=== PATIENT | female | born 1945 | race Caucasian/White ===

== ENCOUNTER 2018-09-06 00:47 | Outpatient (CLI) | payer OTHER, SELFPAY ==
--- NOTE | 2018-09-06 16:14 | DI.DEXA_ITS ---
SYMPTOM/DIAGNOSIS: SCREENING FOR OSTEOPOROSIS, Z78.0, ASYMPTOMATIC POSTMENOPAUSAL DEXA SCAN: Routine examination. No priors. Evaluation of the spine shows no compression deformities. Evaluation of the left hip shows a total T score of -1.3 and a Z score of 0.4, this is consistent with osteopenia and an increased fracture risk. Evaluation of the lumbar spine shows a total T score of -1.3 and a Z score of 0.9. This is consistent with osteopenia and an increased fracture risk. No evidence of osteoporosis is seen. IMPRESSION: Osteopenia in the left hip and lumbar spine.
== END 2018-09-06 01:07 ==
PROVIDERS: PCP Family Medicine; Visit Provider Family Medicine
DX: M85.88 Other specified disorders of bone density and structure, other site (principal); Z78.0 Asymptomatic menopausal state; Z13.820 Encounter for screening for osteoporosis; M85.852 Other specified disorders of bone density and structure, left thigh
CPT/HCPCS: 77080

== ENCOUNTER 2019-02-22 01:15 | Outpatient (CLI) | payer OTHER, SELFPAY ==
--- NOTE | 2019-02-22 16:17 | DI.MAMMO_ITS ---
SYMPTOM/DIAGNOSIS: SCREENING, Z12.39 MAMMOGRAMS; Mammograms were interpreted according to the usual protocol including computer analysis with CAD system, tomosynthesis and C view imaging. The breast tissue is of moderate radiodensity. When compared with previous images, there is a question regarding interval development of a very small area of nodularity in the central portion of the left breast. This finding noted only on the craniocaudad projection. There are no suspicious calcifications in either breast. SUMMARY: Further assessment with a craniocaudad compression spot film and if appropriate, ultrasound is recommended. Breast density, Category B. MQSA ASSESSMENT OF FINDINGS: Incomplete: Needs additional imaging evaluation. Category 0. Patient will receive a letter notifying them of these results. BI-RADS category B. There are scattered areas of fibroglandular density.
== END 2019-02-22 01:35 ==
PROVIDERS: PCP Family Medicine; Visit Provider Family Medicine
DX: Z12.31 Encounter for screening mammogram for malignant neoplasm of breast (principal); R92.8 Other abnormal and inconclusive findings on diagnostic imaging of breast
CPT/HCPCS: 77063; 77067

== ENCOUNTER 2019-03-09 00:22 | Outpatient (CLI) | payer OTHER, SELFPAY ==
--- NOTE | 2019-03-09 15:24 | DI.COMBO_ITS ---
SYMPTOMS/DIAGNOSIS: SMALL NODULE, CENTRAL BREAST ADDITIONAL MAMMOGRAPHIC VIEWS, LEFT BREAST, AND LEFT BREAST ULTRASOUND: Additional mammographic views of the left breast and left breast ultrasound are interpreted in conjunction. These examinations were obtained to evaluate a questionable area of asymmetric density seen on CC view of the left breast on a recent mammogram. Additional mammographic views fail to show a discrete mass. Breast ultrasound shows no evidence of a mass or cyst. CONCLUSION: No specific evidence of malignancy at this time. Follow-up unilateral left breast mammogram recommended in six months. Category 3, breast density category B. MQSA ASSESSMENT OF FINDINGS: Probably benign. Six month follow-up recommended. Category 3. Patient will receive a letter notifying them of these results. BI-RADS category B. There are scattered areas of fibroglandular density.
== END 2019-03-09 00:42 ==
PROVIDERS: PCP Family Medicine; Visit Provider Family Medicine
DX: Z12.31 Encounter for screening mammogram for malignant neoplasm of breast (principal); R92.8 Other abnormal and inconclusive findings on diagnostic imaging of breast; N64.59 Other signs and symptoms in breast
CPT/HCPCS: 76642; 77063; 77067

== ENCOUNTER 2019-09-20 00:25 | Outpatient (CLI) | payer OTHER, SELFPAY ==
--- NOTE | 2019-09-20 09:18 | DI.MAMMO_ITS ---
EXAM: MG MAMMO DIAGNOSTIC UNI CLINICAL HISTORY: LT BREAST ABNORMAL MAMMO, R92.8., 6 month follow up TECHNIQUE: Mammograms were interpreted according to the usual protocol including computer analysis w [employer] CAD system, tomosynthesis and C-view imaging. FINDINGS: Craniocaudad and medial lateral projections of the left breast were obtained. The breast tissue is o f moderate radiodensity. A small ovoid density projected over the midline of the breast noted on the CC projection appears unchanged and examination of the patient's skin reveals small moles. There joshi s been no definite interval change in this finding. There are no suspicious calcifications. IMPRESSION: No evidence of malignancy, category 2, yearly screening mammography is recommended. Breast density, c ategory B. BI-RADS Cat 2 - Benign Findings. Breast Density - Category B - Scattered areas of fibroglandular density.
== END 2019-09-20 00:45 ==
PROVIDERS: PCP Family Medicine; Visit Provider Family Medicine
DX: Z12.31 Encounter for screening mammogram for malignant neoplasm of breast (principal); R92.8 Other abnormal and inconclusive findings on diagnostic imaging of breast; N64.59 Other signs and symptoms in breast
CPT/HCPCS: 77061; 77065; G0279

== ENCOUNTER 2020-12-05 01:07 | Outpatient (CLI) | payer OTHER, SELFPAY ==
--- NOTE | 2020-12-05 | DI.MAMMO_ITS ---
EXAM: MG MAMMO SCREENING CLINICAL HISTORY: SCREENING,Z12.31. TECHNIQUE: Bilateral full field digital CC and MLO mammographic images were obtained with 3D tomosyn thesis and utilizing computer aided detection (CAD). COMPARISON: Prior mammograms dating back to 2011, the most recent being January 2019 and August 2019. FINDINGS: In the left breast there is a noncalcified well-defined 5 by 3.5 millimeter nodule located approximat ashley 7 centimetres in from the nipple, slightly increased in size from previous. Ultrasound recommend ed. In the right breast there is similar size size 5 x 3 millimeter nodule located 9 centimetres from nip ple. Spot compression view and ultrasound recommended. No malignant-appearing microcalcification gr oups in either breast. There is no significant architectural distortion nor skin thickening-retracti on. IMPRESSION: Bilateral nodules as described above, 1 in each breast. Bilateral breast ultrasound is recommended. Also recommend spot compression MLO view of the right breast finding. BI-RADS Category 0 - Assessment Incomplete: Need additional imaging evaluation Breast Density - Category B - Scattered areas of fibroglandular density Breast density Category C or D implies that the patient has dense breast tissue. Dense breast tissue can make it harder to find cancer on a mammogram. Dense breast tissue is also associated with an incr eased risk of breast cancer. This information about the result of the mammogram report was provided to the patient to raise their awareness. Use this report when you speak with the patient about their risks for breast cancer, which includes their family history. At that time, you may recommend additional screening tests (Ultrasoun d or MRI) as these tests may add significant information. A negative radiographic report should not delay biopsy if a dominant or clinically suspicious mass is present. Up to ten percent of cancers are not identified on mammography. A negative report may reinforce clinical impression. Adenosis and dense breasts may obscure an underlying neoplasm. False positive reports average 6 to 10%. Patient will receive a letter notifying them of these results.
== END 2020-12-05 01:27 ==
PROVIDERS: PCP Family Medicine; Visit Provider Family Medicine
DX: Z12.31 Encounter for screening mammogram for malignant neoplasm of breast (principal); R92.8 Other abnormal and inconclusive findings on diagnostic imaging of breast
CPT/HCPCS: 77063; 77067

== ENCOUNTER 2020-12-10 01:22 | Outpatient (CLI) | payer OTHER, SELFPAY ==
--- NOTE | 2020-12-10 | DI.MAMMO_ITS ---
EXAM: MG MAMMO SCREEN CALL BACK UNI CLINICAL HISTORY: F/U MAMMO, LT BREAST NODULE, RT BREAST NODULE. TECHNIQUE: Craniocaudal and mediolateral oblique spot compression digital Mammography views of the right breast followed by Tomosynthesis and bilateral breast ultrasound. COMPARISON: 2011 through 05 December 2020 FINDINGS: Mammography/Tomosynthesis: Right breast: Masses/Architectural Distortion: None seen. Microcalcifictions: No suspicious pleomorphic-type are seen. Skin Thickening/Nipple Retraction: None. Right breast US: Echotexture: Normal appearance of the glandular tissue. Shadowing: No suspicious foci. Cyst: None. Solid lesions: None seen. Ductal dilation: None. Left breast ultrasound: 3 millimeter cyst the 1 o'clock position 4 cm from the nipple. 7 x 2 x 7 mil limeter cyst in the 10 o'clock position 5 cm from the nipple. IMPRESSION: 1. No evidence of malignancy is noted. 2. Unless there is more urgent need, follow-up screening mammography is recommended, as per [place] guidelines. 3. The findings were discussed with the patient on the date of the examination. BI-RADS Category 2 - Benign Findings Breast Density - Category B - Scattered areas of fibroglandular density A negative radiographic report should not delay biopsy if a dominant or clinically suspicious mass is present. Up to ten percent of cancers are not identified on mammography. A negative report may reinforce clinical impression. Adenosis and dense breasts may obscure an underlying neoplasm. False positive reports average 6 to 10%. Patient will receive a letter notifying them of these results.
== END 2020-12-10 01:42 ==
PROVIDERS: PCP Family Medicine; Visit Provider Family Medicine
DX: N60.02 Solitary cyst of left breast (principal); R92.8 Other abnormal and inconclusive findings on diagnostic imaging of breast
CPT/HCPCS: 76642; 77063; 77067

== ENCOUNTER 2021-02-27 10:03 | Outpatient (REF) | payer OTHER, SELFPAY ==
[2021-02-27 14:14] LABS: Hemoglobin A1C 7.2 % (<5.7)
[2021-02-27 14:25] LABS: ALT 20 U/L (14-59); AST 16 U/L (15-37); Alkaline Phosphatase 77 U/L (46-116); Anion Gap 11.8 mmol/L (3-11); BUN 14 mg/dL (7-18); Bilirubin, Total 0.5 mg/dL (0.2-1.0); CO2 23.2 mmol/L (21.0-32.0); CREATININE 1.1 mg/dL (0.55-1.02); Calcium 9.1 mg/dL (8.5-10.1); Calculated LDL 76 mg/dL (<100); Chloride 104 mmol/L (98-107); Cholesterol 151 mg/dL (<200); Estimated GFR 48.55 (mL/min/1.73m2); Glucose 206 mg/dL (74-106); HDL Cholesterol 49 mg/dL (40-60); Potassium 4.3 mmol/L (3.5-5.1); Sodium 139 mmol/L (136-145); Total Protein 7.4 g/dL (6.4-8.2); Triglyceride 134 mg/dL (<150)
== END 2021-02-27 10:04 | disposition home or self-care (01) ==
LOC: NCHCN 10:03
PROVIDERS: PCP Family Medicine; Visit Provider Family Medicine
DX: E11.9 Type 2 diabetes mellitus without complications (principal); E78.5 Hyperlipidemia, unspecified; I25.10 Atherosclerotic heart disease of native coronary artery without angina pectoris
CPT/HCPCS: 80053; 80061; 83036

== ENCOUNTER 2022-03-02 17:19 | Outpatient (REF) | payer MEDICARE, SELFPAY ==
[2022-03-02 16:57] LABS: HCT 45.2 % (36.0-46.0); HGB 14.6 g/dL (11.2-15.7); MCH 29.3 pg (27.0-33.0); MCHC 32.3 % (32.0-36.0); MCV 90.8 fL (80-95); Platelet Count 203 10^3/uL (130-400); RBC 4.98 10^6/uL (3.93-5.22); RDW 13.1 % (11.7-14.6); RDW-SD 43.5 fL; WBC 8.74 10^3/uL (4.4-10.8)
[2022-03-02 17:25] LABS: ALT 17 U/L (14-59); AST 15 U/L (15-37); Albumin 4.1 g/dL (3.4-5.0); Alkaline Phosphatase 83 U/L (46-116); Anion Gap 11.1 mmol/L (3-11); BUN 22 mg/dL (7-18); Bilirubin, Total 0.4 mg/dL (0.2-1.0); CO2 27.9 mmol/L (21.0-32.0); Calcium 9.2 mg/dL (8.5-10.1); Calculated LDL 90 mg/dL (<100); Chloride 102 mmol/L (98-107); Cholesterol 164 mg/dL (<200); Estimated GFR 54.05 (mL/min/1.73m2); Glucose 93 mg/dL (74-106); HDL Cholesterol 62 mg/dL (40-60); Potassium 4.1 mmol/L (3.5-5.1); Sodium 141 mmol/L (136-145); Total Protein 7.6 g/dL (6.4-8.2); Triglyceride 61 mg/dL (<150)
[2022-03-02 18:56] LABS: Vitamin D 25 Total 41.2 ng/mL (30-100)
== END 2022-03-02 17:20 | disposition home or self-care (01) ==
LOC: NCHCN 17:19
PROVIDERS: PCP Family Medicine; Visit Provider Family Medicine
DX: I10 Essential (primary) hypertension (principal); E78.5 Hyperlipidemia, unspecified; E11.9 Type 2 diabetes mellitus without complications; Z00.00 Encounter for general adult medical examination without abnormal findings
CPT/HCPCS: 80053; 80061; 82306; 85027

== ENCOUNTER → 2022-03-04 01:33 | Outpatient (CLI) | payer MEDICARE, SELFPAY ==
--- NOTE | 2022-03-04 09:34 | DI.RAD_ITS ---
Exam(s) XR HIP LT COMPLETE AP PELVIS EXAM: XR HIP LT COMPLETE AP PELVIS CLINICAL HISTORY: LT HIP JOINT PAIN,LOW BACK PAIN,M25.552,M54.5. TECHNIQUE: 2D digital imaging was performed. COMPARISON: No exams were available for comparison FINDINGS: 3 views There is no evidence of pelvic nor for hip fracture. However, there are degenerative changes in the left hip with moderate joint space narrowing, more so inferiorly and there also is prominent osteophyte on the inferior articular surface of the left femor al head. Only minimal degenerative changes noted in the opposite-right hip. Advanced disc space nitish rowing noted in the lower lumbar spine seen on the superior aspect field of view. The visualized sac roiliac joints appear unremarkable. IMPRESSION: Asymmetric significant osteoarthritic degenerative changes evident in the left hip joint, as describe d above DATA REPOSITORY: RADIATION DOSE DELIVERED:
== END ==
PROVIDERS: PCP Family Medicine; Visit Provider Family Medicine
DX: M25.552 Pain in left hip (principal); M54.59 Other low back pain; M16.12 Unilateral primary osteoarthritis, left hip; M51.36 Other intervertebral disc degeneration, lumbar region
CPT/HCPCS: 73502

== ENCOUNTER → 2022-04-03 10:27 | Outpatient (BNVA) | payer MEDICARE, SELFPAY | PROVIDERS: PCP Family Medicine; Referring Provider Physical Therapist; Visit Provider Student in an Organized Health Care Education/Training Program | DX: M16.12 Unilateral primary osteoarthritis, left hip (principal) | CPT/HCPCS: 99202 ==

== ENCOUNTER 2022-05-15 10:26 | Outpatient (CLI) | payer MEDICARE, SELFPAY ==
--- NOTE | 2022-05-15 09:30 | DI.RAD_ITS ---
Exam(s) XR PELVIS AP EXAM: XR PELVIS AP CLINICAL HISTORY: pre op L HARVINDER TECHNIQUE: COMPARISON: CR XR HIP LT COMPLETE AP PELVIS from 03/04/2022 FINDINGS: Three views were obtained. There is moderate loss of the cartilaginous joint spaces of both hips wit h mild subchondral sclerosis of the acetabula E and femoral heads bilaterally. Moderate marginal ost eophytes of the acetabulum noted bilaterally. IMPRESSION: Moderate DJD both hips. RADIATION DOSE DELIVERED: Total DLP
== END 2022-05-15 10:27 | disposition home or self-care (01) ==
LOC: DIORS 10:27
PROVIDERS: PCP Family Medicine; Referring Provider Family Medicine; Visit Provider Physician Assistant Surgical
DX: M16.12 Unilateral primary osteoarthritis, left hip (principal)
CPT/HCPCS: 72170

== ENCOUNTER 2022-05-25 03:21 | Outpatient (CLI) | payer MEDICARE, SELFPAY ==
[2022-05-25 11:16] LABS: HCT 41.1 % (36.0-46.0); HGB 13.9 g/dL (11.2-15.7); MCH 29.8 pg (27.0-33.0); MCHC 33.8 % (32.0-36.0); MCV 88 fL (80-95); MPV 12.9 fL (8.0-11.0); Platelet Count 186 10^3/uL (130-400); RBC 4.66 10^6/uL (3.93-5.22); RDW 13.2 % (11.7-14.6); RDW-SD 42.8 fL; WBC 10.73 10^3/uL (4.4-10.8)
[2022-05-25 11:50] LABS: Anion Gap 8.3 mmol/L (3-11); BUN 19 mg/dL (7-18); CO2 25.7 mmol/L (21.0-32.0); CREATININE 1.1 mg/dL (0.55-1.02); Calcium 8.9 mg/dL (8.5-10.1); Chloride 99 mmol/L (98-107); Estimated GFR 48.42 (mL/min/1.73m2); Glucose 232 mg/dL (74-106); Potassium 3.7 mmol/L (3.5-5.1); Sodium 133 mmol/L (136-145)
== END 2022-05-25 03:22 | disposition home or self-care (01) ==
PROVIDERS: PCP Family Medicine; Visit Provider Student in an Organized Health Care Education/Training Program
DX: M25.552 Pain in left hip (principal); M16.12 Unilateral primary osteoarthritis, left hip; Z01.818 Encounter for other preprocedural examination; Z01.812 Encounter for preprocedural laboratory examination
CPT/HCPCS: 36415; 80048; 85027

== ENCOUNTER 2022-05-25 03:46 | Outpatient (CLI) | payer MEDICARE, SELFPAY ==
[2022-05-25 11:30] LABS: Source Nasal/Nares
[2022-05-25 14:20] LABS: COVID-19 PCR Negative (Negative)
== END 2022-05-25 03:47 | disposition home or self-care (01) ==
LOC: LBO 03:46
PROVIDERS: PCP Family Medicine; Visit Provider Student in an Organized Health Care Education/Training Program
DX: Z20.822 Contact with and (suspected) exposure to COVID-19 (principal); Z01.818 Encounter for other preprocedural examination
CPT/HCPCS: 87635; U0005

== ENCOUNTER 2022-05-26 05:52 | Day surgery (SDC) | payer MEDICARE, SELFPAY ==
[2022-05-26] VITALS (15 sets, daily range): BP systolic 79–158; BP diastolic 38–69; PULSE 45–68; RESP 15–25; TEMP 35.9–36.4; O2SAT 93–98; BMI 36.0
--- NOTE | 2022-05-26 06:09 | W.ANESPRE ---
General Info Date of Service Date Performed: 05/26/22 Height: 5 ft 4 in Weight: 95.254 kg Body Mass Index (BMI): 36.0 Surgical Procedure: Operation Date: 05/26/22 07:50 Proposed Procedure Side Surgeon p Hip Total Hip Anterior Left Cm Vega MD Meds Allergies and Home Medications Allergies Allergy/AdvReac Type Severity Reaction Status Date / Time No Known Allergies Allergy Unverified 05/26/22 06:17 Home Medication Medication Instructions Recorded aspirin 81 mg tablet,delayed 81 mg PO DAILY 05/16/13 release (Aspir-) docusate sodium 100 mg capsule 100 mg PO PRN PRN 05/16/13 (Colace) furosemide 20 mg tablet 40 mg PO DAILY 05/16/13 insulin glargine 100 unit/mL (3 52 unit SQ HS 05/16/13 mL) subcutaneous pen (Lantus Solostar U-100 Insulin) ranitidine HCl 150 mg tablet 150 mg PO PRN PRN 05/16/13 (Zantac) hydralazine 25 mg tablet 25 mg PO TID 02/07/17 spironolactone 25 mg tablet 25 mg PO DAILY 02/07/17 insulin lispro 100 unit/mL 14 unit subcut TID 04/03/22 subcutaneous pen (Humalog KwikPen (U-100) Insulin) isosorbide dinitrate 20 mg tablet 20 mg PO TID 04/03/22 losartan 50 mg tablet 50 mg PO DAILY 04/03/22 simvastatin 20 mg tablet 20 mg PO DAILY 04/03/22 Current Visit Medications: Current Medications Generic Name Dose Route Start Last Admin Trade Name Jose R PRN Reason Stop Dose Admin Acetaminophen 1,000 mg 05/26/22 06:00 Acetaminophen 500 Mg Tab PO PREOP FAHAD Celecoxib 400 mg 05/26/22 06:00 Celecoxib 200 Mg Cap PO PREOP FAHAD Tranexamic Acid 1,000 mg/ 60 mls @ 360 mls/hr 05/26/22 06:00 Sodium Chloride IV PREOP FAHAD Ringer's Solution 1,000 mls @ 80 mls/hr 05/26/22 06:00 IV 06/24/22 23:59 INFUSION FAHAD Cefazolin Sodium/Dextrose 2 gm in 50 mls @ 100 mls/hr 05/26/22 06:00 Ancef Duplex IVPB 06/24/22 23:59 PREOP FAHAD IV Miscellaneous Supplies 1 each 05/26/22 06:00 Iv Access IV 06/24/22 23:59 DIRECTED FAHAD Sodium Chloride 0 ml 05/26/22 06:00 Normal Saline Flush 10 Ml Syr IV 06/24/22 23:59 PRN PRN Sodium Chloride 0 ml 05/26/22 06:00 Normal Saline 10 Ml Vial IJ 06/24/22 23:59 DIRECTED PRN Sterile Water 0 ml 05/26/22 06:00 Water,Injection,Sterile 10 Ml Vial IJ 06/24/22 23:59 DIRECTED PRN PFSH Active Problems Active Problems: Problem Status Onset Code Degenerative joint disease of left hip M16.12 Medical History Medical History Benign hypertension Diabetes mellitus Fracture of left leg Unknown bones treated with cast ~30 years Hyperlipidemia Myocardial infarct 2015-F/u with Dr. Raegan Inman 05/14/22 EDGAR (obstructive sleep apnea) reports was prescribed CPAP but was unable to tolerate wearing Paroxysmal atrial fibrillation Stress-induced cardiomyopathy Surgical History Surgical History HYSTERECTOMY ORIF LEFT ELBOW (09/26/12) REPEAT ORIF LEFT ELBOW (10/06/12) Tobacco Smoking/Tobacco Use Status: Never Alcohol Alcohol Intake: never Substance Use Substance use: Never Substance use type: does not use Vital Signs and Lab Results Vital Signs Most Recent Vital Signs in EMR: Temp Pulse Resp BP Pulse Ox 36.4 C L 57 L 18 126/60 98 05/26/22 06:20 05/26/22 06:20 05/26/22 06:20 05/26/22 06:20 05/26/22 06:20 Lab Results Blood Type / Crossmatch: No Data to Display Complete Blood Count: White Blood Count 10.73 10^3/uL (4.4-10.8) 05/25/22 11:11 Red Blood Count 4.66 10^6/uL (3.93-5.22) 05/25/22 11:11 Hemoglobin 13.9 g/dL (11.2-15.7) 05/25/22 11:11 Hematocrit 41.1 % (36.0-46.0) 05/25/22 11:11 Platelet Count 186 10^3/uL (130-400) 05/25/22 11:11 Complete Metabolic Panel: Sodium Level 133 mmol/L (136-145) L 05/25/22 11:11 Potassium Level 3.7 mmol/L (3.5-5.1) 05/25/22 11:11 Chloride Level 99 mmol/L (98-107) 05/25/22 11:11 Carbon Dioxide Level 25.7 mmol/L (21.0-32.0) 05/25/22 11:11 Blood Urea Nitrogen 19 mg/dL (7-18) H 05/25/22 11:11 Creatinine 1.1 mg/dL (0.55-1.02) H 05/25/22 11:11 Estimated GFR/1.73 m2 48.42 (mL/min/1.73m2) 05/25/22 11:11 Calcium Level 8.9 mg/dL (8.5-10.1) 05/25/22 11:11 Glucose Level 232 mg/dL (74-106) H 05/25/22 11:11 Liver Function Panel: No Data to Display Coagulation Panel: No Data to Display Cardiac Panel: No Data to Display Arterial Blood Gas: No Data to Display Venous Blood Gas: No Data to Display Pancreas Panel: No Data to Display Thyroid Panel: No Data to Display Infectious Disease: Coronavirus (COVID-19)(PCR) Negative (Negative) 05/25/22 11:02 Coronavirus 2019 Source Nasal/Nares 05/25/22 11:02 Blood Cultures: No Data to Display Toxicology Panel: No Data to Display Imaging and Studies Imaging and Studies Study information below may be from another EMR and interpreted by another provider. Please see original notes in EMR for more complete details. Echocardiogram Summary: 04/2022: LVEF 47%, grade II diastolic dysfunction. moderate LV filling pressure. normal RVFXN. Anesthesia Assessment and Plan Anesthesia History Personal History: No History of Anesthesia Complications Family History: No Family History of Anesthesia Complications Exercise Tolerance Exercise Tolerance: Metabolic Equivalents>4 Cardiac & Pulmonary Exam Cardiac Exam: Heart Murmur Present Pulmonary Exam: Clear Bilateral Breath Sounds Implantable Cardiac Device Does patient have a Pacemaker or an ICD?: No Airway Exam Known Difficult Airway: No Mallampati Class: 3 Mouth Opening: Normal (> 3cm) Thyromental Distance: Less than 3 cm Neck Range of Motion: Full ROM Neck Circumference: Thick Teeth Condition: Edentulous ASA Classification ASA Score: ASA 3 Emergency Case?: No NPO Status NPO Status: NPO Clears >2 hours, Solids >8 hours Anesthesia Plan Resuscitation Status: Full Code Anesthesia Technique: Spinal Anesthesia Airway Planned: Natural Airway Monitors Used: Standard Monitors Preoperative Comments:: 76 yo female for left hip hip arthroplasty. Sig PMHx: HTN (losartan, hydralazine), DM (Lantus, Humalog last A1c 7's, 140's this AM), CAD, EDGAR (does not use her CPAP, pAFib, stress-induced cardiomyopathy (2016, afib during this, angiography showed normal coronaries). ECHO per cards note LVEF 47% 2021, moderate MR on 2020 echo.
[2022-05-26] MEDS: Acetaminophen 500 MG TAB 1000 MG PO (06:27)
[2022-05-26] MEDS: Celecoxib 200 MG CAP 400 MG PO (06:27)
--- NOTE | 2022-05-26 06:45 | DI.RAD_ITS ---
Exam(s) XR HIP LT IN OR EXAM: XR HIP LT IN OR CLINICAL HISTORY: total hip TECHNIQUE: 2D and realtime digital imaging was performed. CONTRAST MATERIAL: Refer to procedure report. COMPARISON: No exams were available for comparison FINDINGS: Fluoroscopy was provided for Dr. Vega during the performance of a left total hip replacement. P lease refer to the procedure report for complete details. Ka,r=4.27 mGy IMPRESSION: RADIATION DOSE DELIVERED:
--- NOTE | 2022-05-26 07:15 | DSE_ITS ---
DS: Diagnosis Discharge Diagnosis (1) Degenerative joint disease of left hip: Status: Chronic Discharge Plan Disposition Patient Disposition: HOME Condition: Good Discharge Details Reason For Visit: Left hip DJD Attending Provider: Cm Vega Primary Care Provider: Rosetta Soto Home Meds and New Rx's Prescriptions: New celecoxib [Celebrex] 200 mg capsule 200 mg PO BID Qty: 30 0RF aspirin 81 mg tablet,delayed release (DR/EC) 81 mg PO BID 30 Days Qty: 60 0RF acetaminophen 500 mg tablet 500 mg PO Q6H PRN (Reason: pain) Qty: 60 2RF pantoprazole 40 mg tablet,delayed release (DR/EC) 40 mg PO DAILY 14 Days Qty: 14 0RF oxycodone 5 mg tablet 5 mg PO Q6H PRN (Reason: severe post-operative pain) Qty: 12 0RF Rx Instructions: Take one tablet up to every 6 hours as needed for severe pain Continued simvastatin 20 mg tablet 20 mg PO DAILY losartan 50 mg tablet 50 mg PO DAILY insulin lispro [Humalog KwikPen Insulin] 100 unit/mL insulin pen 14 unit subcut TID isosorbide dinitrate 20 mg tablet 20 mg PO TID furosemide 20 MG tablet 40 mg PO DAILY ranitidine HCl [Zantac] 150 MG tablet 150 mg PO PRN PRN docusate sodium [Colace] 100 MG capsule 100 mg PO PRN PRN insulin glargine [Lantus Solostar U-100 Insulin] 100 UNIT/1 ML insulin pen 52 unit SQ HS hydralazine 25 MG tablet 25 mg PO TID spironolactone 25 MG tablet 25 mg PO DAILY Discontinued aspirin [Aspir-81] 81 MG tablet,delayed release (DR/EC) 81 mg PO DAILY Discharge Instructions Additional Instructions: Total Hip Discharge Instructions Activity: The most important activity is to walk. You should try to take short walks a few times a day. You have no restrictions on movement or positioning, but do not try to force what you do. You will find some stiffness and weakness with hip flexion (lifting your knee). Do not try to strengthen this too early, continue to practice walking and stairs and this will come. - Outpatient physical therapy can be helpful to help return you to a normal gait and improve your flexibility and strength. This can start around 2 weeks. For some patients, it?s not necessary. Usually this is determined at the time of discharge or at the first post-operative visit. - You should wear the SHANE hose on both legs for 2 weeks. Dressing: Keep the surgical dressing in place for at least one week. After the first week it may be removed and replace with light gauze and tape or nothing. It may get wet after 3 days but avoid soaking the dressing. If it gets wet, just lightly pat dry. It is important to always keep some gauze between skin folds, especially when you are sitting. Spend some time with the wound exposed when you are lying flat as the incision does wrinkle onto itself. Medications: - You should take Tylenol and an anti-inflammatory Celebrex as your primary pain control medications. If the Celebrex is too expensive or not covered, please call the office for another alternative (Advil/Ibuprofen or Naproxen/Aleve). - You have been prescribed a stronger pain medication Oxycodone for breakthrough pain, take as needed as prescribed. - You have also been prescribed a stomach acid reduction agent Pantoprozole to help reduce stomach acid and reflux. - You will be taking Aspirin 81mg twice a day for DVT prevention unless instructed otherwise. - If you have constipation you should take Colace or Miralax (both ov [id number]). It takes most people 3-4 days to have a bowel movement. Follow-up: 2 weeks If you have any acute concerns or questions, please do not hesitate to contact the office at [phone]. You may contact Dr. Vega with any questions after hours through the hospital at [phone] or on his cell phone at [phone]. Referrals: Cm Vega MD [ [facility] STAFF PHYSICIAN] - Equipment/Supplies: Walker Activity:: Activity as Tolerated Remove Dressings/Wound Care:: Do Not Remove Shower/Bathe:: Cover Diet:: As Tolerated Discharge Orders Discharge Orders: Discharge Order (Routine); Ordered 05/26/22 Ordered By: Cm Vega DS: Summary Time Spent with Patient providing and/or coordinating discharge services: Less than 30 minutes Status at Discharge Functional status at discharge: uses cane/walker Overall status at discharge: patient is progressing back to baseline Mental Status: mental status grossly normal Speech and Movement: speech and movement normal Mood: congruent mood Affect: normal affect Exam Psych Mental Status: mental status grossly normal Speech and Movement: speech and movement normal Mood: congruent mood Affect: normal affect DS: Data Vitals/I&O Vitals and I&O: Vital Signs Temperature 97.5 F L 05/26/22 06:20 Pulse 57 L 05/26/22 06:20 Pulse Rhythm Regular 05/26/22 06:20 Respiratory Rate 18 05/26/22 06:20 Respiratory Depth Normal 05/26/22 06:20 Blood Pressure 126/60 05/26/22 06:20 Pulse Oximetry 98 05/26/22 06:20 Oxygen Delivery Method Room Air 05/26/22 06:20 Oxygen Flow Rate 0 05/26/22 06:20 Intake & Output 05/25/22 05/25/22 05/26/22 11:59 23:59 11:59 Weight 209 lb 15.986 oz 209 lb 10.554 oz PFSH All Active Problems Degenerative joint disease of left hip (Chronic) Medical History Benign hypertension Diabetes mellitus Fracture of left leg Unknown bones treated with cast ~30 years Hyperlipidemia Myocardial infarct 2016-F/u with Dr. Raegan Inman 05/14/22 EDGAR (obstructive sleep apnea) reports was prescribed CPAP but was unable to tolerate wearing Paroxysmal atrial fibrillation Stress-induced cardiomyopathy Surgical History HYSTERECTOMY ORIF LEFT ELBOW (09/26/12) REPEAT ORIF LEFT ELBOW (10/06/12) Social History Smoking/Tobacco Use Status: Never Smoking risk assessment performed?: Yes Alcohol Intake: never Drug use: Never Substance use type: does not use Additional Social history: unable to assess privately
[2022-05-26] MEDS: ceFAZolin 2 GM/50 ML BAG IVPB (07:19)
[2022-05-26] MEDS: Lactated Ringers 1,000 ML 80 ML IV (08:01)
[2022-05-26] MEDS: fentaNYL 100 MCG/2 ML VIAL IVP ×2 (09:41→10:28)
[2022-05-26] MEDS: HYDROmorphone 2 MG/ML VIAL IVP (10:52)
[2022-05-26] MEDS: Normal Saline 10 ML VIAL IJ (10:53)
--- NOTE | 2022-05-26 11:04 | W.ANESPOSTOP ---
Postoperative Evaluation Date, Time and Location Date Performed: 05/26/22 Time Performed: 10:30 Patient Location: PACU Vital Signs Most Recent Imported Vital Signs: Most Recent Vital Signs Temp Pulse Resp BP Pulse Ox 36.4 C L 53 L 17 140/44 L 93 05/26/22 11:00 05/26/22 11:00 05/26/22 11:00 05/26/22 11:00 05/26/22 11:00 Pain Score Most Recent Pain Score: Most Recent Pain Score Pain Level 6 05/26/22 11:00 Assessment Mental Status: Awake (Alert & Oriented to Patient Baseline) Airway and Respiratory Function: Patent airway with normal (patient baseline) respiratory exam Cardiovascular Function: Hemodynamically Stable Hydration Status: Adequately Hydrated Nausea & Vomiting: No Nausea or Vomiting Pain: Pain is Moderate or Severe Postoperative Pain Management: Pain being addressed with medication Peripheral Nerve Block: Patient did not receive a nerve block
[2022-05-26] MEDS: Insulin Aspart 100 UNITS/ML UNIT 14 UNITS SC (12:15)
--- NOTE | 2022-05-26 14:34 | IN_ITS ---
PT Notes Visit Reasons: Left hip DJD Inpatient Physical Therapy Evaluation Date: 05/26/2022 Referring Doctor: Cm Vega MD PT Orders: PT CONSULT: Status post left HARVINDER Precautions: Fall risk Patient Profile/Admitting Diagnosis: 76-year-old female with osteoarthritis of the left hip status post left HARVINDER earlier today PMHX: Medical History?(Updated 05/15/22 @ 09:46 by Gertrude Kruger) Benign hypertension Diabetes mellitus Fracture of left leg Unknown bones treated with cast ~30 yearsHyperlipidemia Myocardial infarct EDGAR (obstructive sleep apnea) reports was prescribed CPAP but was unable to tolerate wearingParoxysmal atrial fibrillation Stress-induced cardiomyopathy Surgical History HYSTERECTOMY ORIF LEFT ELBOW (09/26/12) REPEAT ORIF LEFT ELBOW (10/06/12) Social History/Home Situation: Lives in a private home with her with her bedroom and bathroom on the first floor. She is 1-2 steps entering the home without a railing. She has a tub seat, but no grab bars or flexible shower hose Current Functional Limitations: Generally independent with all ADLs Equipment Owned/DME: None Subjective: Patient complains of numbness throughout the entire left foot, dorsally greater than plantarly, along with difficulty moving her left foot Objective: General Observation: Pleasant, cooperative and no abnormal pain behavior noted Mental Status: Alert and oriented x3 Pain: Initially complained of some discomfort throughout the left calf with weightbearing but this resolved after further ambulation Vital Signs: Her resting pulse was 76 bpm and increased to 85 bpm following ambulation. Her blood pressure was 159/58 ROM: She is pain-free range of motion of her articular structures. Her active assistive left hip flexion is 90 degrees, and rotation is 30 degrees Strength: Has full volitional movement and her strength is generally rated -5/5 except for her left hip musculature at 3/5. Her left gastrocsoleus is 4/5, left EHL/EDC, anterior tib, and peroneals are 0-1 over 5. Her SENIOR CARE is 4/5 Sensation: Diminished sensation light touch throughout the dorsal greater than plantar aspect of the left foot. She lacks proprioceptive awareness of her left great toe. She had a positive Tinel sign over the superficial peroneal nerve mid substance. Negative behind the fibular head Bed Mobility/Transfers: Independent with assuming the supine to sitting to standing positions with minimal contact guarding from sitting to standing. Gait: Ambulated with an FW W, weightbearing as tolerated on left lower extremity, with excessive left hip and knee flexion clear her left foot during swing phase due to her foot drop. She required contact guarding and frequent reminders regarding blake and foot placement. After ambulating a distance of approximately 20 feet, she sat for 5 to 10 minutes due to lightheadedness. This cleared spontaneously and was able to transfer on and off the toilet, prior to proceeding with her ambulation. Balance: Static Sitting: Stable Dynamic Sitting: Stable Static Standing: Stable Dynamic Standing: Stable Special Tests: Mobility Limitations Standardized Measure [facility] AM-PAC 6 clicks Basic Mobility Inpatient Short Form: Raw Score: 21 standardized Score: 4.69 CMS Score 28.97% Informed Consent/Education: Patient instructed in purpose of PT consult and plan of care. Assessment: Patient is a 76year old female referred to physical therapy services with the diagnosis of status post left HARVINDER. Patient presents with clinical signs and symptoms consistent with this diagnosis, as demonstrated by the following impairment level findings: Generalized weakness from her recent surgery along with a left foot drop. Has a stable gait and was able ascend and descend stairs safely with railing Patient is assessed as a Moderate 22813 complexity based on the following: History: See comorbidities and social history Examination: See above for functional imitations impairments4 evolving Presentation: Evolving Decision Making: Moderate complexity based on her clinical findings Goals: Goals of independent bed mobility and ambulation with FWW weightbearing as tolerated along with stair climbing have been met. Plan of Care/Treatment Plan: The session consisted of the evaluation, patient education,, instruction home exercise program consisting of quad and gluteal sets and ankle pumping. Also self stretch to the left gastrocsoleus. I also recommended to her to make a modified footboard placing a pillow between the board and her left foot to keep it dorsiflexed to neutral position while sleeping. She was also instructed in gait training with an FW W, weightbearing as tolerated on left lower extremity making sure that her left foot is firmly placed on the floor before full weightbearing. She is also instructed in stair climbing with a railing. DISCHARGE RECOMMENDATIONS: Home with no services TREATMENT CODE/TIME: 9716 2/45 minutes Disclaimer: This note was created using [employer] voice recognition software. It was reviewed for major content. However, there may be multiple small discrepancies and errors due to the voice recognition aspects of the software.
--- NOTE | 2022-05-26 15:12 | W.PM.OP ---
Date of service: 05/26/22 Time of Service: 09:15 Operative Note Operative Note DATE OF PROCEDURE: 05/26/22 PRE-OP DIAGNOSIS: Left Hip Osteoarthritis POST-OP DIAGNOSIS: same PROCEDURE: Left Anterior Total Hip Arthroplasty with Intraoperative Navigation SURGEON: Cm Vega [employer]: Gertrude Kruger ANESTHESIA TYPE: General LMA/ETT and Spinal Refer to Anesthesia Record ESTIMATED BLOOD LOSS: 150 PATHOLOGY: none sent TOURNIQUET TIME: 0 COMPLICATIONS: None Patient was transported to: PACU Patient's condition: stable Implants: 1. Depuy Tanana Acetabular Component, 50mm 2. Depuy Acetabular Liner, [id number] 3. Depuy Corail Standard 125 degree Collared Femoral Stem, Size 13 4. Depuy Altrx Ceramic Femoral Head, Size 32+5mm Indications: I have seen Tati in clinic for symptoms of hip arthritis, confirmed with radiographic findings. She has exhausted nonoperative methods and was having significant limitations in daily function and desired better function and less pain. I discussed the technical details of a hip replacement. I explained the risks of the procedure to include, but not limited to, bleeding, infection, pain, stiffness, fracture, damage to nerves and vessels, damage to muscles and tendons, loosening, instability, leg length inequality, need for repeat procedure, blood clot and cardiopulmonary demise. Despite these risks, Tati elected to proceed. Findings: There was significant signs of arthritis throughout the hip. Her hip is also notably tight. There is scarring of the capsule to adherent layers surrounding the hip. Procedure Description: Tati was greeted in the preoperative holding area where the correct side was identified and marked. The consent was reviewed with the patient and signed. The history and physical was updated. All questions were answered. She was taken back to the operating room. A spinal anesthetic was attempted but was unsuccessful and thus converted to a general anesthetic. The feet were wrapped with cast padding and Coban and then placed into the boot liners and then into the boots. Care was taken to protect the skin and make sure the heels were fully down and the boots were stable. The patient was then positioned onto the HANA table. Both legs were held in a neutral position. SCDs were applied. The patient was then slid down onto a peroneal post. Prophylactic antibiotics in the form of Cefazolin were administered. 1g of Tranxemic Acid was given intravenously within 30 minutes of incision. The left leg was then prepped with Chloraprep and draped in a standard fashion. A second prep with Chloraprep was performed prior to placement of a shower-curtain type drape with Iodine impregnated skin protection. A timeout to confirm correct identity, side and site, procedure, allergies, anesthesia, and medical concerns was performed. An obliquely oriented incision was made starting lateral to the ASIS and running distal over the Tensor Fascia Dayna (TFL) muscle belly toward the fibular head, approximately 10cm. The skin and soft tissue was dissected sharply, through Renetta?s fascia, and to the fascia of the TFL. With the fascia and superior border of the IT band identified, the fascia was incised with a new knife just above any perforators from the IT band. The TFL muscle belly was bluntly dissected away from the fascia and moved laterally. The fat between TFL and rectus was identified to ensure the dissection was not within the TFL. Blunt dissection created space between abductors and the capsule and retractor was placed over the lateral femoral neck. The fibers of the rectus femoris tendon were identified and these were freed from the anterior capsule. A second cobra retractor was placed around the medial femoral neck. The TFL was further retracted laterally to show the deep fascia. Careful dissection through this layer identified three main crossing vessels of the lateral femoral circumflex. These were cauterized in multiple locations and then cut without any noticeable bleeding. The TFL was further released bluntly from the deep fascia to expose anterior hip capsule and fat The Dagoberto orthopaedic retractor was then placed beneath the TFL and against sartorius and medial soft tissues to protect and retract the soft tissues. A T-capsulotomy was then performed starting at the superior lateral acetabulum and moving distally to the intertrochanteric ridge. These capsular flaps were tagged with a No. 1 Ethibond and elevated from within. The capsular flaps were released to the shoulder of the lateral neck and to the lesser trochanter to give excellent visualization of the proximal femur. A neck osteotomy was performed using an oscillating saw based on preoperative templates. This cut started in the shoulder and of the lateral neck and exited medially. The saw was at all times directed medially to avoid injury to the greater trochanter. Gross traction was applied to the leg and the osteotomy opened. The femoral head was removed with a corkscrew, making sure to protect the TFL on its exit. Traction was released after head removal. This was measured on the back table to determine the starting reamer size. Portions of the rectus obscuring visualization were minimally elevated off the superior acetabulum. An anterior retractor was placed over the anterior wall between capsule and labrum and attached to the Gripper retraction system. The femur was rotated to 90 degrees and medial capsule was fully released until the lesser trochanter was palpable and visible; the femur was returned to 30 degrees. A posterior retractor was placed similarly between capsule and labrum. This provided excellent visualization. The contents of the cotyloid fossa were removed with electrocautery and the labrum was removed with a knife. There was significant chondromalacia of the superior acetabulum. Acetabular reaming began with a 44mm reamer. This first reaming was directed anterior to posterior and medial to get down to the true floor. This was inspected and reamed until the true floor was reached. The anterior retractor was then released and entry and exit was provided by traction on the capsular flaps. I then reamed sequentially up to a 50mm reamer where good fit was obtained. The larger reamers were oriented based on anatomical reference of the anterior and lateral nieves to ensure proper abduction and anteversion. Positioning and size was confirmed with the fluoroscopy. A 50mm Depuy Tanana acetabular component was selected. The acetabulum was reamed around the periphery with the selected acetabular size to prevent a rim fit. The deep tissues were irrigated. The acetabular component was then impacted in a position of about 40-45 degrees of abduction and 15-20 degrees of anteversion, using the patient?s anatomy as the ultimate landmark. Fluoroscopy was used to confirm this. There was excellent supervisor toy assembly of the acetabular component and the inserting handle was removed. The acetabular liner, Depuy [id number] polyethylene liner, was inserted and lined up with the tines of the acetabular component. There was no soft tissue interposition. The liner was then impacted into position and confirmed to be well-seated. A portion of the mian-articular cocktail was then injected around the acetabulum into the capsule and periosteum. This cocktail consisted of 123mg of Ropivacaine, 0.25mg of Epinephrine, 0.04mg of Clonidine, and 15mg of Ketorolac, diluted to 50cc. The leg was rotated to 120 degrees. Any remaining medial capsule was released until the lesser trochanter was easily palpable. A retractor was placed medially. The lateral capsule was further released into the shoulder to allow access to the greater trochanter. A Patton retractor was placed over the greater trochanter which allowed the trochanter to flip in front of the capsule for excellent exposure. The leg was brought down into maximal extension and 20 degrees of adduction while ensuring there was no impingement on the acetabulum. Any remnant capsule within the trochanter was released. Piriformis and obturator externis were identified and protected. There was excellent access to the proximal femur. The lateral neck remnant was removed with a rongeur. A blunt canal probe was used to identify the canal and trajectory for later broaching. A box osteotome initiated the broach course. A small curved rasp and a curved curette were used to work laterally. Broaching then began with a size 8 Corail broach. This was inserted manually around the trochanter and into the canal before mallet blows. The broach was seated to a few millimeters below the cut level based on the neck cut and the preoperative template. Sequential broaching was continued with the [employer] pneumatic broaching device until a tight fit was obtained with good rotational control of the femur. A trial short neck was inserted along with a +5 trial head. The leg was brought out of extension and adduction and then reduced with traction and internal rotation. The leg was stable anteriorly in a position of 30 degrees of extension and 90 degrees of external rotation. Fluoroscopy was used to ensure there was no fracture and the stem was seated well. Leg lengths were checked with an AP pelvis and pelvic reference points. ezzai - how to [place] navigation system was used to confirm appropriate positioning and leg length and offset. This did not fully recreate the offset so I went with the standard 125. Once content with the desired offset and leg lengths, the leg was brought back into extension, external rotation and adduction. The periosteum and surrounding tissue was injected with remaining portion of the mian-articular cocktail. The proximal femur was irrigated as well as the deep tissues. The Depuy Corail standard 125 collared stem, size 13, was then manually inserted into the proximal femur making sure to control rotation. It was then malleted into position with light blows, giving breaks to allow bone expansion and decrease risk of fracture. The selected Depuy Altrx Ceramic Head, size 32+5mm, was then placed onto the clean and dry trunnion and secured with impaction onto the tapered fit. The leg was brought back out of extension and adduction and reduced with traction and internal rotation. Stability was confirmed with no shuck at 90 degrees of external rotation and 30 degrees of extension. No impingement through range of motion arc. Final x-ray images were obtained with fluoroscopy to confirm adequate positioning and no intraoperative fracture. The deep tissues were thoroughly irrigated with Surgiphor, betadine solution. This was allowed to sit in the wound for 3 minutes before being thoroughly irrigated out with normal saline. The capsule was then reapproximated with the previously placed Ethibond sutures. The TFL fascia was finally closed with a No. 2 Stratafix, barbed suture. Deep tissues were then reapproximated with 0 Vicryl and a running 2-0 Vicryl. The skin was closed with a running 4-0 Monocryl in a subcuticular fashion. This was reinforced with skin glue. A Mepilex silver dressing was applied. At the end of the case, all counts were correct. Tati was transferred to the hospital bed without difficulty and suffering no apparent complication. Tati has a good prognosis. Physical therapy will start today and without restrictions, weight-bearing as tolerated. Aspirin 81mg BID will be used for DVT prophylaxis.
== END 2022-05-26 15:30 | disposition home or self-care (01) ==
PROVIDERS: PCP Family Medicine; Visit Provider Student in an Organized Health Care Education/Training Program
PROC: (CPT 27130; principal; 2022-05-26 07:30)
DX: M16.12 Unilateral primary osteoarthritis, left hip (principal); I10 Essential (primary) hypertension; E11.9 Type 2 diabetes mellitus without complications; E78.5 Hyperlipidemia, unspecified; I25.2 Old myocardial infarction; G47.33 Obstructive sleep apnea (adult) (pediatric); I48.0 Paroxysmal atrial fibrillation; I51.81 Takotsubo syndrome; Z79.4 Long term (current) use of insulin
CPT/HCPCS: 20985; 27130; C1776; 97161; 73501; J0690; J1100; J1815; J2405; J2704; J3010

== ENCOUNTER 2022-06-08 13:20 | Outpatient (CLI) | payer MEDICARE, SELFPAY ==
--- NOTE | 2022-06-08 13:15 | DI.RAD_ITS ---
Exam(s) XR HIP LT COMPLETE AP PELVIS EXAM: XR HIP LT COMPLETE AP PELVIS CLINICAL HISTORY: 1st post op L HARVINDER. TECHNIQUE: 2D digital imaging was performed. COMPARISON: CR XR PELVIS AP from 05/15/2022 FINDINGS: Two views Satisfactory position alignment of the components of the recently placed prosthesis. No fracture or loosening evident. IMPRESSION: DATA REPOSITORY: RADIATION DOSE DELIVERED:
== END 2022-06-08 13:21 | disposition home or self-care (01) ==
LOC: DIORS 13:21
PROVIDERS: PCP Family Medicine; Referring Provider Family Medicine; Visit Provider Physician Assistant Surgical
DX: Z96.642 Presence of left artificial hip joint (principal); Z47.1 Aftercare following joint replacement surgery; M21.372 Foot drop, left foot
CPT/HCPCS: 73502

== ENCOUNTER 2022-07-13 14:10 | Outpatient (CLI) | payer MEDICARE, SELFPAY ==
--- NOTE | 2022-07-13 13:30 | DI.RAD_ITS ---
Exam(s) XR TIB/FIB LT EXAM: XR TIB/FIB LT CLINICAL HISTORY: Left foot drop s/p HARVINDER with h/o frx. TECHNIQUE: 2D digital imaging was performed. COMPARISON: No exams were available for comparison FINDINGS: Two views: No evidence of fracture. Bone density age-appropriate. No osseous lesions. Vascular calcification evident. IMPRESSION: DATA REPOSITORY: RADIATION DOSE DELIVERED:
== END 2022-07-13 14:11 | disposition home or self-care (01) ==
LOC: DIORS 14:10
PROVIDERS: PCP Family Medicine; Referring Provider Family Medicine; Visit Provider Student in an Organized Health Care Education/Training Program
DX: M21.372 Foot drop, left foot (principal); Z47.1 Aftercare following joint replacement surgery; Z96.642 Presence of left artificial hip joint
CPT/HCPCS: 73590

== ENCOUNTER → 2022-08-24 13:55 | Outpatient (BNVA) | payer MEDICARE, SELFPAY | PROVIDERS: PCP Family Medicine; Referring Provider Family Medicine; Visit Provider Student in an Organized Health Care Education/Training Program | DX: T88.8XXA Other specified complications of surgical and medical care, not elsewhere classified, initial encounter (principal); Z96.642 Presence of left artificial hip joint; M21.372 Foot drop, left foot; Z47.1 Aftercare following joint replacement surgery ==

== ENCOUNTER → 2022-12-07 12:46 | Outpatient (BNVA) | payer MEDICARE, SELFPAY | PROVIDERS: PCP Family Medicine; Referring Provider Family Medicine; Visit Provider Student in an Organized Health Care Education/Training Program | DX: T88.8XXD Other specified complications of surgical and medical care, not elsewhere classified, subsequent encounter (principal); Z96.642 Presence of left artificial hip joint; M21.372 Foot drop, left foot | CPT/HCPCS: 99213 ==

== ENCOUNTER 2023-02-12 00:22 | Outpatient (CLI) | payer MEDICARE, SELFPAY ==
--- NOTE | 2023-02-12 | DI.MAMMO_ITS ---
Exam(s) MAMMO SCREENING EXAM: MAMMO SCREENING CLINICAL HISTORY: SCREENING, Z12.31, PREVENTATIVE CARE, Z00.00 TECHNIQUE: Bilateral full field digital CC and MLO mammographic images were obtained with 3D tomosyn thesis and utilizing computer aided detection (CAD). COMPARISON: Available for comparison. FINDINGS: Masses/Architectural Distortion: None seen. Microcalcifications: No suspicious pleomorphic-type are seen. Skin Thickening/Nipple Retraction: None. IMPRESSION: 1. No significant interval change with no specific features of malignancy noted. 2. Unless there is more urgent need, screening mammography is recommended, as per [employer] guidelines. BI-RADS Category 1 - Negative Breast Density - Category B - Scattered areas of fibroglandular density Breast density category C or D implies that the patient has dense breast tissue. Dense breast tissue is very common and is not abnormal but dense breast tissue can make it harder to find cancer on a ma mmogram. Also, dense breast tissue may increase their breast cancer risk. This information about the result of the mammogram report was provided to the patient to raise their awareness. Use this report when you speak with the patient about their risks for breast cancer, which includes their family hist ory. At that time, you may recommend for more screening tests (Ultrasound or MRI) as they might be us eful based on their risk. A negative radiographic report should not delay biopsy if a dominant or clinically suspicious mass is present. Up to ten percent of cancers are not identified on mammography. A negative report may reinforce clinical impression. Adenosis and dense breasts may obscure an underlying neoplasm. False positive reports average 6 to 10%. Patient will receive a letter notifying them of these results.
== END 2023-02-12 00:42 ==
LOC: DI 00:22
PROVIDERS: PCP Family Medicine; Visit Provider Family Medicine
DX: Z12.31 Encounter for screening mammogram for malignant neoplasm of breast (principal)
CPT/HCPCS: 77063; 77067

== ENCOUNTER → 2023-03-08 12:57 | Outpatient (BNVA) | payer MEDICARE, SELFPAY | PROVIDERS: PCP Family Medicine; Visit Provider Student in an Organized Health Care Education/Training Program | DX: Z47.1 Aftercare following joint replacement surgery (principal); M21.372 Foot drop, left foot; Z96.642 Presence of left artificial hip joint | CPT/HCPCS: 99213 ==

== ENCOUNTER 2023-03-26 00:06 | Outpatient (CLI) | payer MEDICARE, SELFPAY ==
--- NOTE | 2023-03-26 | DI.DEXA_ITS ---
Exam(s) XR DEXA BONE DENSITY W/WO GABY EXAM: XR DEXA BONE DENSITY W/WO GABY CLINICAL HISTORY: SCREENING FOR OSTEOPOROSIS IN POSTMENOPAUSAL WOMAN,Z78.0,PREVENTIVE HEALTH TECHNIQUE: Hologic Horizon C densitometer analysis of right hip, lumbar spine and left forearm. La teral survey image of the thoracic and lumbar spine. COMPARISON: DX XR DEXA BONE DENSITY W/WO GABY from 09/06/2018 CR XR HIP LT COMPLETE AP PELVIS from 06/08/2022 FINDINGS: Lateral view of the thoracic and lumbar spine shows no evidence of compression fractures. Scoliosis and degenerative changes are noted. Bone mineral density measurements of the lumbar spine correspond to a total T-score of -1.3, in the osteopenic range. This is not significantly changed from 2018. Bone mineral density measurements of the right hip correspond to a total T-score of -1.2. The femor al neck T-score is -1.5, in the osteopenic range.. The left hip was analyzed on the previous exam. The left forearm bone mineral density measurements correspond to a T-score of the distal 3rd of -3.0 , in the osteoporotic range. This is not significantly changed from the prior exam.. IMPRESSION: Osteopenia of the lumbar spine and right hip. Osteoporosis of the left forearm.
== END 2023-03-26 00:26 ==
LOC: DI 00:07
PROVIDERS: PCP Family Medicine; Visit Provider Family Medicine
DX: Z78.0 Asymptomatic menopausal state (principal); Z00.00 Encounter for general adult medical examination without abnormal findings
CPT/HCPCS: 77080

== ENCOUNTER 2023-06-07 10:17 | Outpatient (CLI) | payer MEDICARE, SELFPAY ==
--- NOTE | 2023-06-07 10:47 | DI.RAD_ITS ---
Exam(s) XR HIP LT AP LAT ONLY EXAM: XR HIP LT AP LAT ONLY CLINICAL HISTORY: ANNUAL F/U S/P L HARVINDER. TECHNIQUE: 2D digital imaging was performed. COMPARISON: CR XR HIP LT COMPLETE AP PELVIS from 06/08/2022 CR XR TIB/FIB LT from 07/13/2022 FINDINGS: Two views: There is continued satisfactory position alignment of the components of the left hip prosthesis. No fracture or loosening evident. IMPRESSION: Stable satisfactory appearance. DATA REPOSITORY: RADIATION DOSE DELIVERED:
== END 2023-06-07 10:18 | disposition home or self-care (01) ==
LOC: DIORS 10:17
PROVIDERS: PCP Family Medicine; Referring Provider Family Medicine; Visit Provider Student in an Organized Health Care Education/Training Program
DX: Z47.1 Aftercare following joint replacement surgery (principal); M21.372 Foot drop, left foot; Z96.642 Presence of left artificial hip joint
CPT/HCPCS: 99213; 73502

== ENCOUNTER 2023-08-09 11:15 | Outpatient (REF) | payer MEDICARE, SELFPAY ==
[2023-08-09 15:19] LABS: ALT 18 U/L (14-59); AST 15 U/L (15-37); Albumin 3.9 g/dL (3.4-5.0); Alkaline Phosphatase 76 U/L (46-116); Anion Gap 10.5 mmol/L (3-11); BUN 13 mg/dL (7-18); Bilirubin, Total 0.7 mg/dL (0.2-1.0); CO2 27.5 mmol/L (21.0-32.0); CREATININE 1.1 mg/dL (0.55-1.02); Calcium 9.3 mg/dL (8.5-10.1); Calculated LDL 73 mg/dL (<100); Chloride 100 mmol/L (98-107); Cholesterol 154 mg/dL (<200); Estimated GFR 51.75 (mL/min/1.73m2); Glucose 164 mg/dL (74-106); HDL Cholesterol 61 mg/dL (40-60); Sodium 138 mmol/L (136-145); Total Protein 7.1 g/dL (6.4-8.2); Triglyceride 101 mg/dL (<150)
== END 2023-08-09 11:16 | disposition home or self-care (01) ==
LOC: NCHCN 11:15
PROVIDERS: PCP Family Medicine; Visit Provider Family Medicine
DX: I10 Essential (primary) hypertension (principal); E11.9 Type 2 diabetes mellitus without complications; E78.5 Hyperlipidemia, unspecified
CPT/HCPCS: 80053; 80061

== ENCOUNTER 2024-05-13 08:22 | Observation (INO) | payer MEDICARE, SELFPAY ==
[2024-05-13] VITALS (58 sets, daily range): BP systolic 107–208; BP diastolic 40–69; PULSE 65–97; RESP 2–32; TEMP 36–38.9; O2SAT 88–99
--- NOTE | 2024-05-13 08:15 | RT.EKG_ITS ---
APPROVED REPORT Exam: Resting ECG Reason for Exam: Chest Pain Patient Location: E HR:91 bpm ECG Measurements Heart Rate [address] 145 P 82 QRSd 100 QRS 17 QT 406 T 55 QTc 501 Conclusion Sinus rhythm...normal P axis, V-rate 60- 99 Ventricular premature complex...V complex w/ short R-R interval Low voltage, extremity leads...all extremity leads <0.5mV Prolonged QT interval...QTc >500mS Normal sinus rhythm at a rate of 91 with interventricular conduction delay and a QRS of 100 ms. Left axis. No signs of LVH. Low voltage. Prolonged QTc. CT within normal limits. Mild ST segment joanne vation in aVR. No ST segment depression. No prior for comparison. No acute injury pattern.
[2024-05-13] MEDS: Acetaminophen 325 MG TAB 650 MG PO (08:51)
[2024-05-13] MEDS: Albuterol/Ipratropium 3 ML UPD VIAL UPD ×3 (08:52→20:02)
[2024-05-13 08:53] LABS: Abs Immature Grans 0.04 10^3/uL (0.0-0.06); Absolute Basophil Count 0.06 10^3/uL (0.0-0.2); Absolute Eosinophil Count 0.05 10^3/uL (0.0-0.7); Absolute Lymphocyte Count 2.07 10^3/uL (1.2-3.4); Absolute Monocyte Count 0.97 10^3/uL (0.1-0.8); Basophils % 0.5 %; Eosinophils % 0.4 %; HGB 12.6 g/dL (11.2-15.7); Immature Grans % 0.3 %; Lymphocytes % 17.3 %; MCH 29.8 pg (27.0-33.0); MCHC 34.1 % (32.0-36.0); MCV 88 fL (80-95); MPV 12.8 fL (8.0-11.0); Monocytes % 8.1 %; Neutrophils % 73.4 %; Platelet Count 194 10^3/uL (130-400); RBC 4.23 10^6/uL (3.93-5.22); RDW 12.7 % (11.7-14.6); RDW-SD 40.6 fL; WBC 11.97 10^3/uL (4.4-10.8)
[2024-05-13 08:55] LABS: Absolute Neutrophil Count 8.79 10^3/uL (1.2-6.7)
[2024-05-13 09:12] LABS: ALT 18 U/L (14-59); AST 14 U/L (15-37); Albumin 3.3 g/dL (3.4-5.0); Alkaline Phosphatase 81 U/L (46-116); Anion Gap 12.9 mmol/L (3-11); BUN 10 mg/dL (7-18); Bilirubin, Total 0.7 mg/dL (0.2-1.0); CO2 24.1 mmol/L (21.0-32.0); CREATININE 1.1 mg/dL (0.55-1.02); Calcium 9.3 mg/dL (8.5-10.1); Chloride 95 mmol/L (98-107); Estimated GFR 51.75 (mL/min/1.73m2); Glucose 142 mg/dL (74-106); Magnesium 1.7 mg/dL (1.8-2.4); NT-proBNP 1309 pg/mL (<300); Potassium 3.7 mmol/L (3.5-5.1); Sodium 132 mmol/L (136-145); Total Protein 7.7 g/dL (6.4-8.2)
[2024-05-13 09:14] LABS: Troponin I 133 ng/L (< or =60)
--- NOTE | 2024-05-13 09:15 | DI.CT_ITS ---
Exam(s) CT CHEST PE CTA EXAM: CT CHEST PE CTA CLINICAL HISTORY: chest pain, fever, chills, elevated trop. TECHNIQUE: Imaging Protocol: Axial CT angiography was performed with multi-slice acquisition and mu lti-planar and/or 3D reconstructions. CONTRAST MATERIAL: Intravenous: Omnipaque 350 contrast volume:100 mL COMPARISON: CR CHEST 2 VIEWS PA,LAT from 02/07/2017 FINDINGS: Tracheobronchial tree: There is mild bronchiectasis in the lower lobes bilaterally with bronchial plu gging in the right lower lobe. Pulmonary parenchyma: Pulmonary opacities are seen in the left lingula and the lower lobes bilaterall y. There is a small reticular nodular infiltrate in the right upper lobe. No architectural distorti on. Pulmonary Arteries: No evidence of filling defect to suggest pulmonary emboli. Mediastinum and [place]: No dominant adenopathy or fluid collection. The esophagus is unremarkable. Th ere is a small hiatal hernia present. Visualized thyroid gland: Unremarkable. Pleura: No effusion or pneumothorax. Heart: The heart is not dilated. Coronary artery calcifications are present. There is a small perica rdial effusion. Aorta: Thoracic aorta non-dilated. No evidence of dissection. The sclerotic calcification is present. Upper abdomen: Unremarkable. Soft tissues: Unremarkable. Bones: Within normal limits for the patient's age. IMPRESSION: 1. No evidence of pulmonary embolism, thoracic aortic dissection or aneurysm. 2. Multifocal opacities seen in the lower lobes, the right upper lobe and the left lingula suspicious for pneumonia. 3. Mild bronchiectasis in the lower lobes with bronchial wall thickening and mucous plugging. RADIATION DOSE DELIVERED: Total DLP DATA REPOSITORY: All CT scans at this facility are submitted to the National Radiology Data Registry (NRDR) Dose Index Registry (DIR) with the [employer] ([employer]). RADIATION OPTIMIZATION: All CT scans at this facility use at least one of these dose optimization te chniques: automated exposure control; mA and/or kV adjustment per patient size (includes targeted exa ms where dose is matched to clinical indication); or iterative reconstruction.
[2024-05-13] MEDS: Normal Saline - Diluent 50 ML VIAL IJ (09:21)
[2024-05-13] MEDS: Omnipaque 350 MG/ML 100 ML BTL IJ (09:22)
[2024-05-13 09:23] LABS: COVID-19 PCR Negative (Negative); Influenza A PCR Negative (Negative); Influenza B PCR Negative (Negative); RSV PCR Negative (Negative)
[2024-05-13 09:29] LABS: Source Nasopharynx
[2024-05-13] MEDS: Aspirin 81 MG CHEW 324 MG CH (09:37)
[2024-05-13 10:36] LABS: Bilirubin Negative (Negative); Blood Negative (Negative); Clarity Clear (Clear); Glucose Negative (Negative); Ketones Trace mg/dL (Negative); Leukocyte Esterase Negative (Negative); Nitrite Negative (Negative); Specific Gravity <= 1.005 (1.005-1.025)
--- NOTE | 2024-05-13 10:41 | ED.GENADUL_ITS ---
Discharge Plan Disposition Patient Disposition: Admit to [facility] Condition: Serious Discharge Details Clinical Impression: Elevated troponin I level, CKD (chronic kidney disease), Chest pain, Pneumonia Primary Care Provider: Rosetta Soto ED Provider: Christel Marcus Home Meds and New Rx's Prescriptions: No Action simvastatin 20 mg tablet 20 mg PO DAILY losartan 50 mg tablet 50 mg PO DAILY isosorbide dinitrate 20 mg tablet 20 mg PO TID aspirin [Adult Aspirin Regimen] 81 mg tablet,delayed release (DR/EC) 81 mg PO DAILY insulin glargine [Lantus Solostar U-100 Insulin] 100 unit/mL (3 mL) insulin pen 42 unit subcut HS furosemide 20 MG tablet 40 mg PO DAILY docusate sodium [Colace] 100 MG capsule 100 mg PO PRN PRN insulin lispro 100 unit/mL insulin pen 14 unit SUBCUT TID Patient Comments: INJECT 14 UNITS SUBCUTANEOUSLY THREE TIMES A DAY DIRECTED hydralazine 25 MG tablet 25 mg PO TID spironolactone 25 MG tablet 25 mg PO DAILY acetaminophen 500 mg tablet 500 mg PO Q6H PRN (Reason: pain) Qty: 60 2RF HPI General Date/Time Provider Initiated Documentation: 05/13/24 08:24 . HPI Narrative: 78-year-old female with history of Takotsubo's cardiomyopathy in 2013 presents with report of cough, subjective fever, and chills. Patient states her symptoms began approximately 5 days ago and gradually worsened. She has some mild shortness of breath with exertion. She denies any chest pain in the absence of cough and deep breathing. Denies prior history of coagulopathy or recent flights or long drives. Denies any recent surgeries. Denies any hemoptysis. Denies known sick contacts. Denies any additional complaints at this time. Denies any recurrent chest pain since her cardiac event in 2013. Followed by [facility]. Related Data Home Medications Medication Instructions Recorded Confirmed docusate sodium 100 mg capsule 100 mg PO PRN PRN 05/16/13 05/13/24 (Colace) furosemide 20 mg tablet 40 mg PO DAILY 05/16/13 05/13/24 hydralazine 25 mg tablet 25 mg PO TID 02/07/17 05/13/24 spironolactone 25 mg tablet 25 mg PO DAILY 02/07/17 05/13/24 isosorbide dinitrate 20 mg tablet 20 mg PO TID 04/03/22 05/13/24 losartan 50 mg tablet 50 mg PO DAILY 04/03/22 05/13/24 simvastatin 20 mg tablet 20 mg PO DAILY 04/03/22 05/13/24 acetaminophen 500 mg tablet 500 mg PO Q6H PRN pain #60 tabs 05/26/22 05/13/24 aspirin 81 mg tablet,delayed 81 mg PO DAILY 03/09/23 05/13/24 release (Adult Aspirin Regimen) insulin glargine 100 unit/mL (3 42 unit subcut HS 03/09/23 05/13/24 mL) subcutaneous pen (Lantus Solostar U-100 Insulin) insulin lispro 100 unit/mL 14 unit subcut TID 05/13/24 05/13/24 subcutaneous pen Previous Rx's Medication Instructions Recorded acetaminophen 500 mg tablet 500 mg PO Q6H PRN pain #60 tabs 05/26/22 Allergies Allergy/AdvReac Type Severity Reaction Status Date / Time No Known Allergies Allergy Verified 05/13/24 08:32 General Stated Complaint: Chest Pain NOBLE: 2 Exam Narrative Exam Narrative: Alert and oriented 78-year-old female in no acute distress, pupils equal round reactive to light and accommodation, lungs clear to auscultation, cardiac rate rhythm regular, no abdominal tenderness, no pallor, alert and oriented x 4, no peripheral edema, distal pulses intact, nontender calf exam. Course Vital Signs Vital signs: Vital Signs Pulse Oximetry 97 05/13/24 08:28 Temperature 37.6 C 05/13/24 08:40 Temperature Source Temporal Artery Scan 05/13/24 08:33 Pulse 84 05/13/24 08:52 Pulse 85 05/13/24 08:40 Respiratory Rate 24 05/13/24 08:52 Respiratory Effort Normal, Non-Labored, Short of Breath 05/13/24 08:46 Respiratory Depth Normal 05/13/24 08:46 Respiratory Pattern Normal 05/13/24 08:46 Blood Pressure 176/67 H 05/13/24 08:33 Blood Pressure Mean 105 05/13/24 08:32 Blood Pressure Position Supine 05/13/24 08:33 Pulse Oximetry 96 05/13/24 08:52 Oxygen Delivery Method Room Air 05/13/24 08:52 Oxygen Flow Rate 0 05/13/24 08:52 Pain Level 10 06/15/24 08:51 Lab/Test Results Lab/Test Results: Laboratory Tests Range/Units 05/13/24 05/13/24 05/13/24 08:30 08:43 10:20 WBC (4.4-10.8) 10^3/uL 11.97 H RBC (3.93-5.22) 10^6/uL 4.23 Hgb (11.2-15.7) g/dL 12.6 Hct (36.0-46.0) % 37.0 MCV (80-95) fL 88 MCH (27.0-33.0) pg 29.8 MCHC (32.0-36.0) % 34.1 RDW (11.7-14.6) % 12.7 Plt Count (130-400) 10^3/uL 194 MPV (8.0-11.0) fL 12.8 H Immature Gran % % 0.3 Neutrophils % % 73.4 Lymphocytes % % 17.3 Monocytes % % 8.1 Eosinophils % % 0.4 Basophils % % 0.5 Nucleated RBC % (0.0-0.3) % 0.0 Absolute Neutrophils (1.2-6.7) 10^3/uL 8.79 H Absolute Lymphocytes (1.2-3.4) 10^3/uL 2.07 Absolute Monocytes (0.1-0.8) 10^3/uL 0.97 H Absolute Eosinophils (0.0-0.7) 10^3/uL 0.05 Absolute Basophils (0.0-0.2) 10^3/uL 0.06 Sodium (136-145) mmol/L 132 L Potassium (3.5-5.1) mmol/L 3.7 Chloride (98-107) mmol/L 95 L Carbon Dioxide (21.0-32.0) mmol/L 24.1 Anion Gap (3-11) mmol/L 12.9 H BUN (7-18) mg/dL 10 Creatinine (0.55-1.02) mg/dL 1.1 H Est GFR (CKD-EPI 2020) (mL/min/1.73m2) 51.75 Glucose (74-106) mg/dL 142 H Calcium (8.5-10.1) mg/dL 9.3 Magnesium (1.8-2.4) mg/dL 1.7 L Total Bilirubin (0.2-1.0) mg/dL 0.7 AST (15-37) U/L 14 L ALT (14-59) U/L 18 Alkaline Phosphatase (46-116) U/L 81 Troponin I (< or =60) ng/L 133 H* NT-Pro-B Natriuret Pep (<300) pg/mL 1309 H Total Protein (6.4-8.2) g/dL 7.7 Albumin (3.4-5.0) g/dL 3.3 L Urine Color (Yellow) Yellow Urine Clarity (Clear) Clear Urine pH (5-8) 6.0 Ur Specific [place] (1.005-1.025) <= 1.005 Urine Protein (Neg-Trace) mg/dL Negative Urine Ketones (Negative) mg/dL Trace H Urine Blood (Negative) Negative Urine Nitrite (Negative) Negative Urine Bilirubin (Negative) Negative Urine Urobilinogen (Up to 0.2) mg/dL 1.0 H Ur Leukocyte Esterase (Negative) Negative Urine Glucose (Negative) mg/dL Negative COVID-19 Source Nasopharynx SARS-CoV-2 (PCR) (Negative) Negative Influenza Type A (PCR) (Negative) Negative Influenza Type B (PCR) (Negative) Negative RSV (PCR) (Negative) Negative Medical Decision Making 78-year-old female presenting with shortness of breath, chest pain, cough, chills for the past 5 days worsening with weakness and dyspnea with chest pain today. Labs were ordered including troponin, initial EKG does not show evidence of acute ischemia or injury when compared to prior. Initial troponin however is elevated at 133 BNP is elevated at 1300. Mild leukocytosis at 11,000, sounds like baseline chronic kidney disease at 1.1. Creatinine, not significantly changed when compared to prior. Ejection fraction in 2020 to 47%, after Takotsubo's cardiomyopathy in 2013. Given small amount of IV fluid resuscitation without obvious overt evidence of CHF exacerbation at this time on baseline furosemide. Multifocal pneumonia on CTA per radiology interpretation and my review. Flu, COVID, RSV negative. Will treat for community-acquired pneumonia with ceftriaxone and doxycycline given mild QTc prolongation on the EKG. Magnesium of 1.7 will supplement with oral magnesium. Tylenol was given for discomfort and a DuoNeb which improved patient's symptoms. She has not been hypoxic in the emergency department but was tachypneic initially on presentation. Patient's heart score is 77-87 with history of CHF, chronic kidney disease, and age. At this time given elevated troponin with repeat 117. I suspect this is a troponin leak secondary to strain from being ill in the presence of multifocal pneumonia. Blood cultures and lactate are pending at this time and procalcitonin. Patient does not meet sepsis criteria. When asked regarding advance directives patient prefers to be full code for short period of resuscitation. Patient remains alert and oriented throughout encounter. Agreeable to admission. Case discussed with admitting hospitalist, Dr. Dayana Butler is excepted patient to his care. 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 Raegan Inman 05/14/22 [place] (obstructive sleep apnea) reports was prescribed CPAP but was unable to tolerate wearing Paroxysmal atrial fibrillation Stress-induced cardiomyopathy Surgical History HYSTERECTOMY ORIF LEFT ELBOW (09/26/12) REPEAT ORIF LEFT ELBOW (10/06/12) Social History Smoking/Tobacco Use Status: Never Smoking risk assessment performed?: Yes Alcohol Intake: never Drug use: Never Substance use type: does not use Additional Social history: unable to assess privately
--- NOTE | 2024-05-13 11:06 | DI.VRAD_ITS ---
PROCEDURE INFORMATION: Exam: CTA Chest With Contrast Exam date and time: 05/13/2024 9:25 AM Age: 78 years old Clinical indication: Other: Chest pain, fever, chills, elevated troponin TECHNIQUE: Imaging protocol: Computed tomographic angiography of the chest with contrast. Exam focused on the arteries. 3D rendering (Not supervised by radiologist): MIP and/or 3D reconstructed images were created by the technologist. Radiation optimization: All CT scans at this facility use at least one of these dose optimization techniques: automated exposure control; mA and/or kV adjustment per patient size (includes targeted exams where dose is matched to clinical indication); or iterative reconstruction. Contrast material: OMNI 350; Contrast volume: 100 ml; Contrast route: INTRAVENOUS (IV); COMPARISON: No relevant prior studies available. FINDINGS: Pulmonary arteries: Normal. No pulmonary emboli. Aorta: No thoracic aortic aneurysm or dissection. Moderate amount of plaque. No significant stenosis of the branching vessels. Normal branching pattern to the great vessels. Lungs: Multifocal airspace disease involving the periphery of posterior lower lobes primarily but also within the lingula and to a lesser extent of the right upper lobe. There is a minimal amount of bronchiolectasis. Pleural spaces: Unremarkable. No pneumothorax. No pleural effusion. Heart: Unremarkable. No cardiomegaly. No significant pericardial effusion. Coronary arteries: Mnro-mg-bevimvoa calcification. Lymph nodes: Unremarkable. No enlarged lymph nodes. Bones/joints: Unremarkable. No acute fracture. Soft tissues: Unremarkable. IMPRESSION: Examination negative for pulmonary emboli, thoracic aortic aneurysm or dissection. Multifocal airspace disease consistent with multifocal pneumonia. Dictated and Authenticated by: Javi Kaufman MD. Ordering:BON Kearney MD
[2024-05-13 11:09] LABS: Troponin I 117 ng/L (< or =60)
[2024-05-13] MEDS: DOXYCYCLINE 100 MG in Normal Saline 100 ML IVPB ×2 (12:13→22:05)
[2024-05-13] MEDS: cefTRIAXone 1 GM/50 ML BAG IVPB (12:13)
[2024-05-13 12:28] LABS: Procalcitonin 0.2 ng/mL
--- NOTE | 2024-05-13 14:09 | HPE_ITS ---
Date of service: 05/13/24 Time of Service: 14:00 Assessment and Plan Assessment and plan (1) Pneumonia: Status: Acute Assessment and plan: cough, fever, chills x 5 d; neg covid flu rsv doxy and ceftriaxone CT chest: Multifocal airspace disease consistent with multifocal pneumonia; no PE BC pending Urine strep/legionella pending MRSA pending Tylenol for fever Benzonatate prn cough Guaifenesin halima BID Lactate 1.0 (2) Chest pain: Status: Acute Assessment and plan: Resolved Trop elevated; demand ischemia s/t pna EKG no ischemia Telemetry Trend trop (3) CKD (chronic kidney disease): Status: Chronic Assessment and plan: Cr 1.1; baseline Trend Hold/caution with nephrotoxic drugs (4) Elevated troponin I level: Status: Acute Assessment and plan: 133, down to 117 No chest pain Demand s/t ischemia Third trop pending History of Present Illness History of Present Illness Chief Complaint: Cough, fever and chills Narrative: This is a 78-year-old female patient with past medical history significant for, not limited to Takotsubo's cardiomyopathy in 2012, chronic kidney disease, and total left hip 2021 who presented to the [facility] ED for evaluation of cough, subjective fever, and chills. The patient reported symptoms began approximately 5 days ago and have gradually worsened. She now experiences mild shortness of breath with exertion. She denied chest pain except in association with coughing or deep breathing. There is no history of recent coagulopathy, long flights, or surgeries. She denies hemoptysis, known sick contacts, or additional complaints. Since her cardiac event in 2012, she has not had recurrent chest pain and has been followed by [facility]. Initial EKG shows no acute ischemia or injury compared to prior. Elevated initial troponin 133, trended down to 117 and BNP 1300. Mild leukocytosis 11,000 and baseline chronic kidney disease creatinine 1.1 Flu, COVID, and RSV negative.? Lactate 1.0 and procalcitonin 0.2. Blood cultures pending.? Magnesium 1.7, repleted with oral. CTA shows multifocal pneumonia. Mild QTc prolongation noted on EKG. Ejection fraction in 2019 was 47% post- Takotsubo's cardiomyopathy. Ceftriaxone, and doxycycline for community-acquired pneumonia was started in the ED. Tylenol and DuoNeb provided symptomatic relief. Initially tachypneic but not hypoxic. Heart score elevated (77-87) due to history of CHF, chronic kidney disease, and age. Patient is placed on observation status on the medical floor for further testing and treatment. Patient is a full code. 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 Raegan Inman 05/14/22 [place] (obstructive sleep apnea) reports was prescribed CPAP but was unable to tolerate wearing Paroxysmal atrial fibrillation Stress-induced cardiomyopathy Surgical History HYSTERECTOMY ORIF LEFT ELBOW (09/26/12) REPEAT ORIF LEFT ELBOW (10/06/12) Social History Smoking/Tobacco Use Status: Never Smoking risk assessment performed?: Yes Alcohol Intake: never Drug use: Never Substance use type: does not use Housing: house Additional Social history: unable to assess privately Meds Allergies and Home Medications Allergies Allergy/AdvReac Type Severity Reaction Status Date / Time No Known Allergies Allergy Verified 05/13/24 08:32 Home Medications Medication Instructions Recorded Confirmed Type docusate sodium 100 mg capsule 100 mg PO PRN PRN 05/16/13 05/13/24 History (Colace) furosemide 20 mg tablet 40 mg PO DAILY 05/16/13 05/13/24 History hydralazine 25 mg tablet 25 mg PO TID 02/07/17 05/13/24 History spironolactone 25 mg tablet 25 mg PO DAILY 02/07/17 05/13/24 History isosorbide dinitrate 20 mg tablet 20 mg PO TID 04/03/22 05/13/24 History losartan 50 mg tablet 50 mg PO DAILY 04/03/22 05/13/24 History simvastatin 20 mg tablet 20 mg PO DAILY 04/03/22 05/13/24 History acetaminophen 500 mg tablet 500 mg PO Q6H PRN pain #60 tabs 05/26/22 05/13/24 Rx aspirin 81 mg tablet,delayed 81 mg PO DAILY 03/09/23 05/13/24 History release (Adult Aspirin Regimen) insulin glargine 100 unit/mL (3 42 unit subcut HS 03/09/23 05/13/24 History mL) subcutaneous pen (Lantus Solostar U-100 Insulin) insulin lispro 100 unit/mL 14 unit subcut TID 05/13/24 05/13/24 History subcutaneous pen Exam Narrative Exam Narrative: General: Patient appears appropriate for age, obese and lying in bed comfortably with her head in a 45 degree angle. She is alert and oriented, She is in no acute distress. HEENT: Normocephalic, eyes with pupils equal and reactive to light symmetrically, extraocular movement intact and sclera anicteric. Oropharynx moist and pink. Neck: Supple without JVD. Back: Kyphotic without CVA tenderness. Lungs: Fair aeration clear to auscultation percussion. Heart: Regular rate and rhythm with no murmurs or gallops appreciated. Status: Exam deferred. Abdomen: Obese contour, soft and nontender to palpation without palpable hepatosplenomegaly. Bowel sounds positive in all quadrants. Genitalia/rectal: Exam deferred. Extremities: Without clubbing, cyanosis or pitting edema. Good capillary refill Skin: Normal color, warm and dry. Neuro: Cranial nerves II through XII gross intact, no focalizing motor deficits. No tremor. Psych: Normal affect and mood. No abnormal thought processes. Remote and recent memory intact. Const General: cooperative and no acute distress Orientation: alert, awake and oriented x3 HENMT Head: normal to inspection Ears: hearing grossly normal bilaterally and external ears normal General nose exam: external nose normal Face and sinus: normal facial exam Mouth: oral mucosae normal Eyes General: appearance normal, both eyes and all related structures Eyelids: eyelids normal EOM: EOM intact bilaterally Neck Neck: normal visual inspection Lymphatic: no lymphadenopathy noted Chest Chest: normal inspection of the chest Resp Effort & Inspection: normal respiratory effort and able to speak in complete sentences Cardio Rate: regular rate Rhythm: regular rhythm GI Inspection: normal to inspection Palpation: soft, not firm, no guarding, no hepatosplenomegaly, no masses and nontender Auscultation: normal bowel sounds Skin General skin exam: no rashes or lesions noted Neuro General: patient alert and patient awake Cognition: normal cognition Speech: speech normal Motor: muscle tone normal throughout Sensory Exam: no sensory deficits noted Extrem General: normal to inspection, full ROM and capillary refill normal Psych Appearance: grossly normal Mental Status: mental status grossly normal Speech and Movement: speech and movement normal Affect: normal affect Thought Process: normal Results Labs 05/13/24 08:43 05/13/24 08:43 Labs: Laboratory Results - last 24 hr 05/13/24 05/13/24 05/13/24 08:30 08:43 10:20 WBC 11.97 H RBC 4.23 Hgb 12.6 Hct 37.0 MCV 88 MCH 29.8 MCHC 34.1 RDW 12.7 Plt Count 194 MPV 12.8 H Immature Gran % 0.3 Neutrophils % 73.4 Lymphocytes % 17.3 Monocytes % 8.1 Eosinophils % 0.4 Basophils % 0.5 Nucleated RBC % 0.0 Absolute Neutrophils 8.79 H Absolute Lymphocytes 2.07 Absolute Monocytes 0.97 H Absolute Eosinophils 0.05 Absolute Basophils 0.06 VBG Lactate Sodium 132 L Potassium 3.7 Chloride 95 L Carbon Dioxide 24.1 Anion Gap 12.9 H BUN 10 Creatinine 1.1 H Est GFR (CKD-EPI 2020) 51.75 Glucose 142 H Calcium 9.3 Magnesium 1.7 L Total Bilirubin 0.7 AST 14 L ALT 18 Alkaline Phosphatase 81 Troponin I 133 H* NT-Pro-B Natriuret Pep 1309 H Total Protein 7.7 Albumin 3.3 L Procalcitonin Urine Color Yellow Urine Clarity Clear Urine pH 6.0 Ur Specific [place] <= 1.005 Urine Protein Negative Urine Ketones Trace H Urine Blood Negative Urine Nitrite Negative Urine Bilirubin Negative Urine Urobilinogen 1.0 H Ur Leukocyte Esterase Negative Urine Glucose Negative COVID-19 Source Nasopharynx SARS-CoV-2 (PCR) Negative Influenza Type A (PCR) Negative Influenza Type B (PCR) Negative RSV (PCR) Negative 05/13/24 05/13/24 10:46 11:44 WBC RBC Hgb Hct MCV MCH MCHC RDW Plt Count MPV Immature Gran % Neutrophils % Lymphocytes % Monocytes % Eosinophils % Basophils % Nucleated RBC % Absolute Neutrophils Absolute Lymphocytes Absolute Monocytes Absolute Eosinophils Absolute Basophils VBG Lactate 1.0 Sodium Potassium Chloride Carbon Dioxide Anion Gap BUN Creatinine Est GFR (CKD-EPI 2020) Glucose Calcium Magnesium Total Bilirubin AST ALT Alkaline Phosphatase Troponin I 117 H* NT-Pro-B Natriuret Pep Total Protein Albumin Procalcitonin 0.2 Urine Color Urine Clarity Urine pH Ur Specific [place] Urine Protein Urine Ketones Urine Blood Urine Nitrite Urine Bilirubin Urine Urobilinogen Ur Leukocyte Esterase Urine Glucose COVID-19 Source SARS-CoV-2 (PCR) Influenza Type A (PCR) Influenza Type B (PCR) RSV (PCR) Last Vital Signs Temp 36.7 C 05/13/24 12:57 Pulse 72 05/13/24 13:58 Resp 16 05/13/24 13:58 BP 132/48 L 05/13/24 12:57 Pulse Ox 96 05/13/24 13:58 Time Spent Time spent with Patient: 55-74 minutes Time was spent: preparing to see the patient(eg.review tests), obtaining and/or reviewing separately otained hiistory, ordering medications,tests, procedures, referring, communicating with other health laboratory animal care veterinarian, indepentently interpreting results, counseling the patient and care coordination
[2024-05-13] MEDS: Isosorbide Dinitrate 10 MG TAB 20 MG PO ×2 (14:12→22:16)
[2024-05-13] MEDS: hydrALAZINE 25 MG TAB PO ×2 (14:12→22:16)
[2024-05-13] MEDS: Enoxaparin 40 MG/0.4 ML SYR SC (14:13)
[2024-05-13] MEDS: Acetaminophen 500 MG TAB PO (16:10)
--- NOTE | 2024-05-13 16:23 | INITIAL_ITS ---
Date of service: 05/13/24 Time of Service: 16:23 Care Management Initial Assmt Initial Assessment Reason for Hospitalization: Pneumonia, Chest Pain Functional Status/Living Situation Patient Presentation: Tati was awake and lying in bed with an emesis bag in her hand, surrounded by her , sons, daughter and 2 grandchildren when CM met with her. She has a large family that are very supportive. Although, Tati is not feeling well at this time she shares states that she is looking forward to going to her camp and laying in the sun when she feels better. Town of Residence: [place] Resides with: Spouse (Kody) Significant Other/Family: Local (Children: Belinda, Tom, Dez and Roman. Grandchildren: Cipriano and Ana) Employment Status: Retired (motor coach bus driver) Instrumental Activities of Daily Living (ADLs): Independent Medications Medication Management: No Issues/Barriers identified Physical Functioning/Mobility Assistive Device: None Advance Directives Advance Directives: Do you have an Advance Directive: N 05/05/13 09:32 AD On File at [facility]: N 02/10/13 09:14 Date Asked 08/09/23 08/09/23 11:23 AD Date Reviewed COLST On File at [facility] No 03/18/23 19:05 COLST Date Scanned Code Status Resuscitation Status Full Code Portal Pt does not currently have a portal and education provided: Yes Insurance Coverage/Financial Issues Insurance: Medicare ACO Member: No Care Team Visit Care Team Role Provider Type Rosetta Soto Primary Care Provider NON-[facility] STAFF PHYSICIAN Noy Shultz RDN, CDCES Other Providers SNOWMAKER Karlee James Other Providers SNOWMAKERMANNY Thomas RDN Other Providers SNOWMAKER ANNE Olvera Emergency Provider [employer] Britton Galicia MD Admit Provider [facility] STAFF PHYSICIAN Attending Provider Discharge Potential Discharge Needs: PCP F/U Appt Anticipated Barriers to Discharge: None Identified Patient/Family Education Needs: Review discharge instructions, discuss Ask Me Three Transportation: Private vehicle ( to transport.) Plan: Anticipate Tati will discharge home when medically ready. Pt will follow up with community providers and her discharge plan of care as instructed. New [facility] services will be ordered, if indicated. will provide transportation. CM following. [facility] All Active Problems (Updated 05/13/24 @ 12:48 by KRISHNA TAYLOR) Pneumonia (Acute) Chest pain (Acute) CKD (chronic kidney disease) (Chronic) Elevated troponin I level (Acute) Foot drop, left foot (Acute 05/26/22) History of total left hip replacement (Acute 05/26/22) Degenerative joint disease of left hip (Chronic) Medical History Benign hypertension Diabetes mellitus Fracture of left leg Unknown bones treated with cast ~30 years Hyperlipidemia Myocardial infarct 2015-/u with Dr. Raegan Inman 05/14/22 EDGAR (obstructive sleep apnea) reports was prescribed CPAP but was unable to tolerate wearing Paroxysmal atrial fibrillation Stress-induced cardiomyopathy Surgical History HYSTERECTOMY ORIF LEFT ELBOW (09/26/12) REPEAT ORIF LEFT ELBOW (10/06/12) Social History Smoking/Tobacco Use Status: Never Smoking risk assessment performed?: Yes Alcohol Intake: never Drug use: Never Substance use type: does not use Housing: house Additional Social history: unable to assess privately SDOH(Care Management) Screening Will the Patient Participate in the Screening?: Declined to provide Do you worry about having a steady place to live?: choose not to answer In the past 12 months, have you had to go without electric, gas, oil or water in your home?: choose not to answer Have you or anyone in your house had to go without enough food to eat?: choose not to answer Has lack of transportation kept you from medical appointments or from doing things needed for daily living?: choose not to answer Has anyone in your support network made you feel unsafe for any reason?: choose not to answer
[2024-05-13 16:26] LABS: Troponin I 124 ng/L (< or =60)
[2024-05-13 16:53] LABS: MRSA PCR Negative (Negative)
[2024-05-13] MEDS: Insulin Aspart 300 UNITS/3 ML PEN 14 UNITS SC (16:54)
[2024-05-13] MEDS: Insulin Aspart 300 UNITS/3 ML PEN SC (16:56)
[2024-05-13] MEDS: Ibuprofen 800 MG TAB PO (18:22)
--- NOTE | 2024-05-13 20:04 | RESPIRATORY ---
RT spoke with patient for EDGAR. Patient states that she does not use CPAP at home, quitted more than 10 years ago due to discomfort.
[2024-05-13] MEDS: Normal Saline Flush 10 ML SYR IVP (22:04)
[2024-05-13] MEDS: Benzonatate 100 MG CAP PO (22:15)
[2024-05-13] MEDS: guaiFENesin 600 MG TABCR PO (22:16)
[2024-05-13] MEDS: Insulin Glargine 300 UNITS/3 ML PEN 42 UNITS SC (22:23)
[2024-05-13] MEDS: Simvastatin 20 MG TAB PO (22:30)
[2024-05-14] VITALS (7 sets, daily range): BP systolic 128–137; BP diastolic 43–60; PULSE 70–90; RESP 3–18; TEMP 36.4–36.7; O2SAT 96–98
[2024-05-14 06:52] LABS: Abs Immature Grans 0.06 10^3/uL (0.0-0.06); Absolute Basophil Count 0.05 10^3/uL (0.0-0.2); Absolute Eosinophil Count 0.19 10^3/uL (0.0-0.7); Absolute Lymphocyte Count 1.96 10^3/uL (1.2-3.4); Absolute Neutrophil Count 6.49 10^3/uL (1.2-6.7); Basophils % 0.5 %; HCT 34.1 % (36.0-46.0); HGB 11.4 g/dL (11.2-15.7); Immature Grans % 0.6 %; Lymphocytes % 20.5 %; MCH 29.5 pg (27.0-33.0); MCHC 33.4 % (32.0-36.0); MCV 88 fL (80-95); MPV 12.8 fL (8.0-11.0); Monocytes % 8.4 %; Platelet Count 195 10^3/uL (130-400); RBC 3.87 10^6/uL (3.93-5.22); RDW-SD 41.7 fL; WBC 9.55 10^3/uL (4.4-10.8)
[2024-05-14 07:18] LABS: Anion Gap 13.1 mmol/L (3-11); BUN 12 mg/dL (7-18); CO2 23.9 mmol/L (21.0-32.0); Calcium 9.1 mg/dL (8.5-10.1); Chloride 98 mmol/L (98-107); Estimated GFR 58.02 (mL/min/1.73m2); Glucose 130 mg/dL (74-106); Magnesium 1.8 mg/dL (1.8-2.4); Potassium 3.4 mmol/L (3.5-5.1); Sodium 135 mmol/L (136-145)
[2024-05-14] MEDS: Isosorbide Dinitrate 10 MG TAB 20 MG PO (07:46)
[2024-05-14] MEDS: Spironolactone 25 MG TAB PO (07:46)
[2024-05-14] MEDS: Losartan 50 MG TAB PO (07:46)
[2024-05-14] MEDS: hydrALAZINE 25 MG TAB PO (07:46)
[2024-05-14] MEDS: guaiFENesin 600 MG TABCR PO (07:46)
[2024-05-14] MEDS: Normal Saline Flush 10 ML SYR IVP (07:47)
[2024-05-14] MEDS: Furosemide 20 MG TAB 40 MG PO (07:47)
[2024-05-14] MEDS: Insulin Aspart 300 UNITS/3 ML PEN 14 UNITS SC ×2 (07:48→11:37)
[2024-05-14] MEDS: Levalbuterol 1.25 MG/3 ML UPD VIAL UPD ×2 (08:59→12:11)
[2024-05-14 09:18] LABS: Lab Add On Test DONE
[2024-05-14 09:46] LABS: Troponin I 111 ng/L (< or =60)
[2024-05-14] MEDS: Potassium Chloride 20 MEQ TABCR 40 MEQ PO (09:51)
[2024-05-14] MEDS: DOXYCYCLINE 100 MG in Normal Saline 100 ML IVPB (09:51)
[2024-05-14] MEDS: Benzonatate 100 MG CAP PO (09:58)
--- NOTE | 2024-05-14 10:47 | DSE_ITS ---
Date of service: 05/14/24 Time of Service: 10:47 DS: Diagnosis Discharge Diagnosis (1) Pneumonia: Status: Acute (2) Chest pain: Status: Acute (3) CKD (chronic kidney disease): Status: Chronic (4) Elevated troponin I level: Status: Acute Discharge Plan Disposition Patient Disposition: Home Condition: Improving Discharge Details Reason For Visit: community aquired pneumonia Admit Date/Time: 05/13/24 11:42 Admit Provider: Britton Galicia Attending Provider: Britton Galicia Primary Care Provider: Rosetta Soto [facility] Course Hospital Course: This is a 78-year-old female patient with past medical history significant for, not limited to Takotsubo's cardiomyopathy in 2012, chronic kidney disease, and total left hip 2021 who presented to the [facility] ED on 05/13/24 for evaluation of cough, subjective fever, and chills. The patient reported symptoms began approximately 5 days ago and have gradually worsened. She experienced mild shortness of breath with exertion. She denied chest pain except in association with coughing or deep breathing. There is no history of recent coagulopathy, long flights, or surgeries. She denies hemoptysis, known sick contacts, or additional complaints. Since her cardiac event in 2012, she has not had recurrent chest pain and is followed by [facility]. Initial EKG showed no acute ischemia or injury compared to prior. Elevated initial troponin 133, trended down to 117 and BNP 1300. Mild leukocytosis 11,000 and baseline chronic kidney disease creatinine 1.1 Flu, COVID, and RSV negative.? Lactate 1.0 and procalcitonin 0.2. Blood cultures pending.? Magnesium 1.7, repleted with oral. CTA showed multifocal pneumonia. Mild QTc prolongation noted on EKG. Ejection fraction in 2019 was 47% post- Takotsubo's cardiomyopathy. Ceftriaxone, and doxycycline for community-acquired pneumonia was started in the ED. Tylenol and DuoNeb provided symptomatic relief. Initially tachypneic but not hypoxic. Heart score elevated (77-87) due to hist ory of CHF, chronic kidney disease, and age. Patient was placed on observation status on the medical floor for further testing and treatment. Patient is a full code. Patient improved overnight, patient had no oxygen requirement, no shortness of breath, vital signs stable.? Patient was discharged to home stable with prescriptions for doxycycline, cefpodoxime, benzonatate and recommended guaifen esin; continue home medications, stay hydrated.. Home Meds and New Rx's Prescriptions: New benzonatate 100 mg Capsule 100 mg PO TID PRN PRN (Reason: Cough) Qty: 30 0RF guaifenesin [Mucus Relief ER] 600 mg Tablet Extended Release 12hr 600 mg PO BID Qty: 0 0RF doxycycline hyclate 100 mg capsule 100 mg PO BID Qty: 8 0RF cefpodoxime 200 mg tablet 200 mg PO BID Qty: 8 0RF Rx Instructions: must administer with a meal/food Continued simvastatin 20 mg tablet 20 mg PO DAILY losartan 50 mg tablet 50 mg PO DAILY isosorbide dinitrate 20 mg tablet 20 mg PO TID aspirin [Adult Aspirin Regimen] 81 mg tablet,delayed release (DR/EC) 81 mg PO DAILY insulin glargine [Lantus Solostar U-100 Insulin] 100 unit/mL (3 mL) insulin pen 42 unit subcut HS furosemide 20 MG tablet 40 mg PO DAILY docusate sodium [Colace] 100 MG capsule 100 mg PO PRN PRN insulin lispro 100 unit/mL insulin pen 14 unit SUBCUT TID Patient Comments: INJECT 14 UNITS SUBCUTANEOUSLY THREE TIMES A DAY DIRECTED hydralazine 25 MG tablet 25 mg PO TID spironolactone 25 MG tablet 25 mg PO DAILY acetaminophen 500 mg tablet 500 mg PO Q6H PRN (Reason: pain) Qty: 60 2RF Discharge Instructions Instructions: Acetaminophen, Cefpodoxime, Doxycycline, Guaifenesin, Community- Acquired Pneumonia, Adult (DC) Additional Instructions: Take antibiotics as prescribed. Tylenol for fever. Drink plenty of fluids. Follow up with PCP. Stand Alone Forms: Nursing Discharge Form Referrals: Rosetta Soto [Primary Care Provider] - (Please call for a hospital follow up within 10-14 days) Activity:: Activity as Tolerated Equipment/Supplies:: No Equipment Needed Diet:: Diabetic Discharge Orders Discharge Orders: Discharge Order (Routine); Ordered 05/14/24 Ordered By: Florida Grimm Discharge Data Discharge Date/Time-TO BE ENTERED AT DEPARTURE: 05/14/24 12:47 DS: Summary Time Spent with Patient providing and/or coordinating discharge services: Greater than 30 minutes Status at Discharge Functional status at discharge: independent ambulation Overall status at discharge: patient is back to baseline Mental Status: mental status grossly normal Speech and Movement: speech and movement normal Mood: congruent mood Affect: normal affect Quality:SDOH Health Related Social Needs: No Data to Display Exam Narrative Exam Narrative: General: Patient appears appropriate for age, obese and lying in bed comfortably with her head in a 45 degree angle. She is alert and oriented, She is in no acute distress. HEENT: Normocephalic, eyes with pupils equal and reactive to light symmetrically, extraocular movement intact and sclera anicteric. Oropharynx moist and pink. Neck: Supple without JVD. Back: Kyphotic without CVA tenderness. Lungs: Fair aeration clear to auscultation percussion. Heart: Regular rate and rhythm with no murmurs or gallops appreciated. Status: Exam deferred. Abdomen: Obese contour, soft and nontender to palpation without palpable hepatosplenomegaly. Bowel sounds positive in all quadrants. Genitalia/rectal: Exam deferred. Extremities: Without clubbing, cyanosis or pitting edema. Good capillary refill Skin: Normal color, warm and dry. Neuro: Cranial nerves II through XII gross intact, no focalizing motor deficits. No tremor. Psych: Normal affect and mood. No abnormal thought processes. Remote and recent memory intact. Const General: cooperative and no acute distress Orientation: alert, awake and oriented x3 HENMT Head: normal to inspection Ears: hearing grossly normal bilaterally and external ears normal General nose exam: external nose normal Face and sinus: normal facial exam Mouth: oral mucosae normal Eyes General: appearance normal, both eyes and all related structures Eyelids: eyelids normal EOM: EOM intact bilaterally Neck Neck: normal visual inspection Lymphatic: no lymphadenopathy noted Chest Chest: normal inspection of the chest Resp Effort & Inspection: normal respiratory effort and able to speak in complete sentences Cardio Rate: regular rate Rhythm: regular rhythm GI Inspection: normal to inspection Palpation: soft, not firm, no guarding, no hepatosplenomegaly, no masses and nontender Auscultation: normal bowel sounds Skin General skin exam: no rashes or lesions noted Neuro General: patient alert and patient awake Cognition: normal cognition Speech: speech normal Motor: muscle tone normal throughout Sensory Exam: no sensory deficits noted Extrem General: normal to inspection, full ROM and capillary refill normal Psych Appearance: grossly normal Mental Status: mental status grossly normal Speech and Movement: speech and movement normal Mood: congruent mood Affect: normal affect Thought Process: normal DS: Data Vitals/I&O Vitals and I&O: Vital Signs Temperature 36.4 C L 05/14/24 07:46 Temperature Source Tympanic 05/14/24 07:46 Pulse 90 05/14/24 09:05 Pulse Rhythm Regular 05/14/24 08:00 Pulse 77 05/13/24 12:40 Respiratory Rate 16 05/14/24 09:05 Respiratory Effort Normal, Non-Labored 05/14/24 08:00 Respiratory Depth Normal 05/14/24 08:00 Respiratory Pattern Normal 05/14/24 08:00 Blood Pressure 137/43 L 05/14/24 07:46 Blood Pressure Mean 78 05/13/24 12:31 Blood Pressure Position Supine 05/13/24 08:33 Pulse Oximetry 98 05/14/24 09:05 Oxygen Delivery Method Room Air 05/14/24 08:59 Oxygen Flow Rate 0 05/14/24 08:59 Pain Level 0 05/14/24 07:46 Intake & Output 05/13/24 05/13/24 05/14/24 11:59 23:59 11:59 Intake Total 500 / 500 10 / 10 Output Total 300 / 300 1100 / 1100 Balance 200 / 200 -1090 / -1090 Weight 88.451 kg 90.2 kg 91 kg Intake: IV 260 / 260 10 / 10 Oral 240 / 240 Output: Urine 300 / 300 1100 / 1100 Other: Urine Color Yellow Yellow Urine Appearance Cloudy Cloudy Urine Odor Normal Normal Voiding Methods Toilet Toilet Data Completed and Pending Labs on day of discharge: Labs from last 24 hours 05/14/24 05/14/24 05/14/24 Unknown 05:43 05:42 WBC 9.55 RBC 3.87 L Hgb 11.4 Hct 34.1 L MCV 88 MCH 29.5 MCHC 33.4 RDW 13.0 Plt Count 195 MPV 12.8 H Immature Gran % 0.6 Neutrophils % 68.0 Lymphocytes % 20.5 Monocytes % 8.4 Eosinophils % 2.0 Basophils % 0.5 Nucleated RBC % 0.0 Absolute Neutrophils 6.49 Absolute Lymphocytes 1.96 Absolute Monocytes 0.80 Absolute Eosinophils 0.19 Absolute Basophils 0.05 VBG Lactate Sodium 135 L Potassium 3.4 L Chloride 98 Carbon Dioxide 23.9 Anion Gap 13.1 H BUN 12 Creatinine 1.0 Est GFR (CKD-EPI 2020) 58.02 Glucose 130 H Calcium 9.1 Magnesium 1.8 Troponin I 111 H* Procalcitonin Urine Legionella Ag MRSA (TEM-PCR) Ur Strep pneumoniae Ag Add-On Test Request DONE 05/14/24 05/13/24 05/13/24 04:36 17:57 15:50 WBC RBC Hgb Hct MCV MCH MCHC RDW Plt Count MPV Immature Gran % Neutrophils % Lymphocytes % Monocytes % Eosinophils % Basophils % Nucleated RBC % Absolute Neutrophils Absolute Lymphocytes Absolute Monocytes Absolute Eosinophils Absolute Basophils VBG Lactate Sodium Potassium Chloride Carbon Dioxide Anion Gap BUN Creatinine Est GFR (CKD-EPI 2020) Glucose Calcium Magnesium Troponin I 124 H* Procalcitonin Urine Legionella Ag Pending MRSA (TEM-PCR) Ur Strep pneumoniae Ag Pending Add-On Test Request 05/13/24 05/13/24 05/13/24 15:00 11:44 10:46 WBC RBC Hgb Hct MCV MCH MCHC RDW Plt Count MPV Immature Gran % Neutrophils % Lymphocytes % Monocytes % Eosinophils % Basophils % Nucleated RBC % Absolute Neutrophils Absolute Lymphocytes Absolute Monocytes Absolute Eosinophils Absolute Basophils VBG Lactate 1.0 Sodium Potassium Chloride Carbon Dioxide Anion Gap BUN Creatinine Est GFR (CKD-EPI 2020) Glucose Calcium Magnesium Troponin I 117 H* Procalcitonin 0.2 Urine Legionella Ag MRSA (TEM-PCR) Negative Ur Strep pneumoniae Ag Add-On Test Request 05/13/24 12:08 Blood Blood Culture - Pending 05/13/24 11:44 Blood Blood Culture - Pending Preliminary micro results at discharge 05/13/24 12:08 Blood Culture - Pending Blood 05/13/24 11:44 Blood Culture - Pending Blood [facility] All Active Problems (Updated 05/14/24 @ 10:46 by Florida Grimm NP) Pneumonia (Acute) Chest pain (Acute) CKD (chronic kidney disease) (Chronic) Elevated troponin I level (Acute) Foot drop, left foot (Acute 05/26/22) History of total left hip replacement (Acute 05/26/22) Degenerative joint disease of left hip (Chronic) Medical History Benign hypertension Diabetes mellitus Fracture of left leg Unknown bones treated with cast ~30 years Hyperlipidemia Myocardial infarct 2016-F/u with Dr. Raegan Inman 05/14/22 EDGAR (obstructive sleep apnea) reports was prescribed CPAP but was unable to tolerate wearing Paroxysmal atrial fibrillation Stress-induced cardiomyopathy Surgical History HYSTERECTOMY ORIF LEFT ELBOW (09/26/12) REPEAT ORIF LEFT ELBOW (10/06/12) Social History Smoking/Tobacco Use Status: Never Smoking risk assessment performed?: Yes Alcohol Intake: never Drug use: Never Substance use type: does not use Housing: house Additional Social history: unable to assess privately Time Spent with Patient Time Spent with Patient: 45-69 minutes Time was spent: preparing to see the patient(eg.review tests), ordering medications,tests, procedures, referring, communicating with other health daytime caregiver, indepentently interpreting results, counseling the patient and care coordination
--- NOTE | 2024-05-14 11:12 | PDOC.CMDIS ---
Date of service: 05/14/24 Time of Service: 11:12 LACE Index Scoring Tool Questions: Length of Stay (in days): 1 Was the patient admitted via the E.D.?: Yes E.D. Visits: 1 Answers: Total Score: 5 Risk of Readmission: Low Risk Care Management Discharge Plan Reason for Hospitalization: CAP Discharge Plan: Tati is discharged home with a plan to follow up with her PCP. Family will transport. Pt will follow up with community providers and her discharge plan of care as instructed. No new services are ordered at the time of this discharge. Patient/Family Education Needs: Review discharge instructions, discuss Ask Me Three SDOH Health Related Social Needs: No Data to Display
[2024-05-14] MEDS: cefTRIAXone 1 GM/50 ML BAG IVPB (11:35)
[2024-05-14] MEDS: Insulin Aspart 300 UNITS/3 ML PEN SC (11:38)
[2024-05-15 18:17] LABS: Legionella Ag Detection Urine Negative (Negative)
[2024-05-16 15:18] LABS: Streptococcus Pneumoniae Ag, U Negative (Negative)
== END 2024-05-14 12:47 | disposition home or self-care (01) ==
LOC: ER 11:57 → MS 05-14 09:57
PROVIDERS: Nurse Practitioner Family; Admitting Provider Internal Medicine; Emergency Provider Physician Assistant; PCP Family Medicine; Visit Provider Internal Medicine
DX: J18.9 Pneumonia, unspecified organism (principal); I24.89 Other forms of acute ischemic heart disease; E11.22 Type 2 diabetes mellitus with diabetic chronic kidney disease; N18.9 Chronic kidney disease, unspecified; Z96.642 Presence of left artificial hip joint; D72.829 Elevated white blood cell count, unspecified; R94.31 Abnormal electrocardiogram [ECG] [EKG]; M21.372 Foot drop, left foot; I51.81 Takotsubo syndrome; G47.33 Obstructive sleep apnea (adult) (pediatric); I48.0 Paroxysmal atrial fibrillation; E78.5 Hyperlipidemia, unspecified; I25.2 Old myocardial infarction; Z79.4 Long term (current) use of insulin; Z79.899 Other long term (current) drug therapy
CPT/HCPCS: 00123; 36415; 71275; 80048; 80053; 84145; 87040; 87449; 87637; 87641; 93005; 96365; 96366; 96368; 96372; 99285; J1650; 81003; 83605; 83735; 83880; 84484; 85025; 87899; 93010; 94640; 94760; 99222; 99239; G0378; J0696; J1815; J3490; J7614; J7620

== ENCOUNTER 2024-10-03 08:03 | Outpatient (CLI) | payer MEDICARE, SELFPAY ==
--- NOTE | 2024-10-03 08:00 | RT.EKG_ITS ---
APPROVED REPORT Exam: Resting ECG Reason for Exam: CAD Patient Location: O HR:59 bpm ECG Measurements Heart Rate 59 AXIS OR 147 P 52 QRSd 97 QRS -6 QT 408 T 75 QTc 405 Conclusion Sinus rhythm...normal P axis, V-rate 50- 99 Low voltage, extremity leads...all extremity leads <0.5mV
== END 2024-10-03 08:04 | disposition home or self-care (01) ==
LOC: DI.CARD 08:04
PROVIDERS: PCP Family Medicine; Visit Provider Internal Medicine Cardiovascular Disease
DX: I48.0 Paroxysmal atrial fibrillation (principal); I25.10 Atherosclerotic heart disease of native coronary artery without angina pectoris
CPT/HCPCS: 93010

== ENCOUNTER → 2024-10-03 10:50 | Outpatient (BNVA) | payer MEDICARE, SELFPAY | PROVIDERS: PCP Family Medicine; Referring Provider Family Medicine; Visit Provider Internal Medicine Cardiovascular Disease | DX: I48.0 Paroxysmal atrial fibrillation (principal); I25.10 Atherosclerotic heart disease of native coronary artery without angina pectoris | CPT/HCPCS: 93005; 99214 ==

== ENCOUNTER → 2025-04-02 14:28 | Outpatient (BNVA) | payer MEDICARE, SELFPAY | PROVIDERS: PCP Family Medicine; Referring Provider Family Medicine; Visit Provider Registered Nurse | DX: I51.81 Takotsubo syndrome (principal) | CPT/HCPCS: 99214 ==

== ENCOUNTER 2025-06-04 18:43 | Outpatient (REF) | payer MEDICARE, SELFPAY ==
[2025-06-04 15:36] LABS: COMMENT (LAB VIEW ONLY) 63.20 mg/dL; Microalb ug/mg Crea 10.4 ug/mg Cr
== END 2025-06-04 18:44 | disposition home or self-care (01) ==
LOC: NCHCN 18:43
PROVIDERS: PCP Family Medicine; Visit Provider Family Medicine
DX: E11.9 Type 2 diabetes mellitus without complications (principal)
CPT/HCPCS: 82043; 82570

== ENCOUNTER → 2025-10-01 14:22 | Outpatient (BNVA) | payer MEDICARE, SELFPAY | PROVIDERS: PCP Family Medicine; Visit Provider Registered Nurse | DX: I51.81 Takotsubo syndrome (principal); Z79.02 Long term (current) use of antithrombotics/antiplatelets; Z79.899 Other long term (current) drug therapy | CPT/HCPCS: 99214 ==